=== PATIENT | female | born 1960 | race Caucasian/White ===

== ENCOUNTER → 2016-03-14 | Outpatient (CLI) | payer BC ==
--- NOTE | 2016-03-14 17:18 | MA ---
Screening Digital Mammogram With iCAD Analysis Clinical Indications: Routine screening. A sister was diagnosed with breast cancer in her 40s. Technique: Standard cephalocaudal and mediolateral oblique projections were obtained. This examinatio n was processed by the iCAD computer aided detection system. Comparison: February 2015, February 2014, January 2013, September 2011, September 2010, September 2009, August 31. Breast density: Type C; Heterogeneously dense. Findings: CAD was reviewed. No masses, suspicious calcifications or other signs of malignancy are id entified. There has been no significant change in the appearance of either breast. Impression: Negative mammogram. BI-RADS 1. Recommendation: Routine screening in one year as long as physical examination is negative in this pat ient with heterogeneously dense breasts. [facility] will send a result letter to the patient. Dense breast parenchyma diminishes mammographic sensitivity. Negative mammography should not preclude additional workup of a clinically suspicious finding. The patient's information is entered into a reminder system with a target due date for her next mammo gram.
== END ==
LOC: BMCIMAGING 15:27
DX: Z12.31 Encounter for screening mammogram for malignant neoplasm of breast (principal); Z80.3 Family history of malignant neoplasm of breast
CPT/HCPCS: G0202

== ENCOUNTER 2016-08-28 10:58 | Day surgery (SDC) | payer BC ==
[2016-08-28] MEDS ORDERED: LR 1,000 ML IV SCH (11:14)
[2016-08-28] MEDS ORDERED: LIDOCAINE 1% 2 ML INJ ID PRN (11:15)
[2016-08-28] MEDS ORDERED: CEFAZOLIN 2 GM/DEXTROSE/100 ML BAG IV ONE (11:23)
[2016-08-28] MEDS ORDERED: SILVER NITRATE APPLICATOR 1 APPL TP ONE (12:08)
[2016-08-28 12:13] VITALS: BP 126/82; PULSE 65; RESP 16; TEMP 97.7; O2SAT 96
--- NOTE | 2016-08-28 12:31 | PDANEPAE ---
ANE History of Present Illness Hysteroscope with D and C ANE Past Medical History - Cardiovascular History Hx Hypertension: No Hx Arrhythmias: No Hx Chest Pain: No Hx Coronary Artery / Peripheral Vascular Disease: No Hx CHF / Valvular Disease: No Hx Palpitations: No - Pulmonary History Hx COPD: No Hx Asthma/Reactive Airway Disease: No Hx Recent Upper Respiratory Infection: No Hx Oxygen in Use at Home: No Hx Sleep Apnea: No Sleep Apnea Screening Result - Last Documented: Negative - Neurologic History Hx Cerebrovascular Accident: No Hx Seizures: No Hx Dementia: No - Endocrine History Hx Diabetes: No Hypothyroid: No Hyperthyroid: No - Renal History Hx Renal Disorders: No - Liver History Hx Hepatic Disorders: No - Neurological & Psychiatric Hx Hx Neurological and Psychiatric Disorders: No - Cancer History Hx Cancer: No - Congenital Disorder History Hx Congenital Disorders: No - GI History GERD: no Hx Gastrointestinal Disorders: Yes Gastrointestinal History Comment: HX OF SLEEVE GASTRECTOMY - Other Health History Other Health History: WEARS GLASSES. PRONE TO ECZEMA - Chronic Pain History Chronic Pain: No - Surgical History Prior Surgeries: PRASANTH. BONE IN LEFT WRIST REPAIRED. GASTRIC SLEEVE. D&C X2 ANE Review of Systems - Exercise capacity METS (RN): 4 METS ANE Patient History - Allergies Allergies/Adverse Reactions: ciprofloxacin [From Cipro] Allergy (Unknown, Verified 08/25/16 11:24) Hives ciprofloxacin HCl [From Cipro] Allergy (Unknown, Verified 08/25/16 11:24) Hives clarithromycin [From Biaxin] Allergy (Unknown, Verified 08/25/16 11:24) Hives - Home Medications Home Medications: Herbals/Supplements -Info Only 08/25/16 [Last Taken 08/25/16] Norethindrone 08/25/16 [Last Taken 08/28/16 07:00] Warfarin Sodium 08/25/16 [Last Taken 08/25/16] Xarelto 08/25/16 [Last Taken 08/28/16 07:00] - NPO status NPO Since - Liquids (Date): 08/28/16 NPO Since - Liquids (Time): 09:00 NPO Since - Solids (Date): 08/27/16 - Anes Hx Anes Hx: post operative nausea - Smoking Hx Smoking Status: Never smoked Marijuana use: No - Alcohol Use Alcohol Use: Occasionally - Family Anes Hx Family Anes Hx: none Family Hx Anesthesia Complications: NONE ANE Labs/Vital Signs - Labs Result Diagrams: 08/28/16 12:15 - Vital Signs Blood Pressure: 126/82 Heart Rate: 65 Respiratory Rate: 16 O2 Sat (%): 96 Height: 172.72 cm Weight: 90.718 kg ANE Physical Exam - Airway Mallampati Score: Class 1 Mouth exam: normal dental/mouth exam - Pulmonary Pulmonary: no respiratory distress - Cardiovascular Cardiovascular: regular rate and rhythym, no murmur, rub, or gallop - ASA Status ASA Status: II ANE Anesthesia Plan Anesthesia Plan: GA w LMA
[2016-08-28] MEDS ORDERED: MIDAZOLAM 2 MG/2 ML VIAL IVP ONE (12:32)
[2016-08-28] MEDS ORDERED: SCOPOLAMINE HYDROBROMIDE 1.5 MG PATCH TD ONE (12:34)
[2016-08-28] MEDS ORDERED: MIDAZOLAM 2 MG/2 ML VIAL ONE (12:34)
[2016-08-28 12:38] LABS: % IMMATURE GRANULYOCYTES 0.2 % (0.0-1.1); ABSOLUTE IMMATURE GRANULOCYTES 0.01 10^3/uL (0.00-0.10); ADD DIFF? NO; ADD MORPH? NO; ADD SCAN? NO; ATYPICAL LYMPHOCYTE FLAG 20 (0-99); FRAGMENT RBC FLAG 0 (0-99); HEMATOCRIT 42.2 % (38.0-47.0); HEMOGLOBIN 13.5 g/dL (12.6-16.3); LEFT SHIFT FLG 0 (0-99); LIPEMIA HEMOLYSIS FLAG 80 (0-99); MEAN CELL HEMOGLOBIN 29.9 pg (27.9-34.1); MEAN CELL VOLUME 93.4 fL (81.5-99.8); MEAN PLATELET VOLUME 9.8 fL (8.7-11.7); PLATELET CLUMPS FLAG 0 (0-99); PLATELET COUNT 272 10^3/uL (150-400); RED BLOOD CELL COUNT 4.52 10^6/uL (4.18-5.33); RED CELL DISTRIBUTION WIDTH 14.9 % (11.5-15.2)
[2016-08-28] MEDS ORDERED: SCOPOLAMINE HYDROBROMIDE 1.5 MG PATCH TD SCH (12:45)
[2016-08-28 12:48] LABS: INR 3.85 (0.83-1.16); PROTIME(PATIENT) 38.5 SEC (12.0-15.0)
[2016-08-28 12:49] LABS: APTT 36.4 SEC (23.0-38.0)
--- NOTE | 2016-08-28 13:47 | PDHPUP ---
History & Physical Update H&P update statement: This history and physical update is based on an assessment of the patient which was completed after admission or registration (within 24 hours), but prior to the surgery/procedure. H&P update: H&P reviewed & patient examined H&P changes: Pt took her xeralto this AM, and her INR is 3.8. Discussed with Dr Oneyda Jeffery, and he indicated that xeralto can affect her INR. We will need to reschedule surgery. I reviewed her hx with him, and he indicated she needs to be off the xeralto for 3 full days prior to her scheduled D&C. Discussed this with the patient. Discussed the alternatives of a hysterosonogram for her endometrial thickening for evaluation first, then if it shows a polyp, we would want to proceed w/ hysteroscopy and removal. She desires to proceed with D&C. Will reschedule today and let her know the options.
[2016-08-31] MEDS ORDERED: PATCH REMOVAL 1 EA PATCH TD SCH (12:32)
== END 2016-08-28 13:50 | disposition home or self-care (01) ==
LOC: FSGY 10:58
PROVIDERS: ATTEND Obstetrics & Gynecology
DX: Z53.09 Procedure and treatment not carried out because of other contraindication (principal); R93.8 Abnormal findings on diagnostic imaging of other specified body structures; N93.9 Abnormal uterine and vaginal bleeding, unspecified; Z79.01 Long term (current) use of anticoagulants; Z86.711 Personal history of pulmonary embolism; Z98.84 Bariatric surgery status
CPT/HCPCS: J0690; J2250

== ENCOUNTER 2016-09-01 11:05 | Day surgery (SDC) | payer BC ==
[2016-09-01 11:51] LABS: HEMATOCRIT 43.5 % (38.0-47.0); HEMOGLOBIN 13.9 g/dL (12.6-16.3); MEAN CELL HEMOGLOBIN 30.1 pg (27.9-34.1); MEAN CELL VOLUME 94.2 fL (81.5-99.8); RED BLOOD CELL COUNT 4.62 10^6/uL (4.18-5.33)
[2016-09-01 12:02] LABS: INR 1.06 (0.83-1.16); PROTIME(PATIENT) 13.7 SEC (12.0-15.0)
[2016-09-01 12:03] LABS: APTT 23.8 SEC (23.0-38.0)
--- NOTE | 2016-09-01 12:45 | PDHPUP ---
History & Physical Update H&P update statement: This history and physical update is based on an assessment of the patient which was completed after admission or registration (within 24 hours), but prior to the surgery/procedure. H&P update: H&P reviewed & patient examined (Pt has stopped her xeralto for [address] Oneyda Jeffery recommended; INR normal. Labs look good. Waiting on UA results, if normal, will proceed with surgery.)
[2016-09-01] MEDS ORDERED: MIDAZOLAM 2 MG/2 ML VIAL IVP ONE (13:06)
--- NOTE | 2016-09-01 13:06 | PDANEPAE ---
ANE History of Present Illness 55 yo F with menorrhagia, here for hysteroscopy ANE Past Medical History - Cardiovascular History Hx Hypertension: No Hx Arrhythmias: No Hx Chest Pain: No Hx Coronary Artery / Peripheral Vascular Disease: No Hx CHF / Valvular Disease: No Hx Palpitations: No - Pulmonary History Hx COPD: No Hx Asthma/Reactive Airway Disease: No Hx Recent Upper Respiratory Infection: No Hx Oxygen in Use at Home: No Hx Sleep Apnea: No Sleep Apnea Screening Result - Last Documented: Negative - Neurologic History Hx Cerebrovascular Accident: No Hx Seizures: No Hx Dementia: No - Endocrine History Hx Diabetes: No - Renal History Hx Renal Disorders: No - Liver History Hx Hepatic Disorders: No - Neurological & Psychiatric Hx Hx Neurological and Psychiatric Disorders: No - Cancer History Hx Cancer: No - Congenital Disorder History Hx Congenital Disorders: No - GI History Hx Gastrointestinal Disorders: Yes Gastrointestinal History Comment: HX OF SLEEVE GASTRECTOMY - Other Health History Other Health History: HX-PE UNK CAUSE X1. DVT POST OP X1. WEARS GLASSES. PRONE TO ECZEMA - Chronic Pain History Chronic Pain: No - Surgical History Prior Surgeries: ACL REPAIR L W/POST OP DVT. PRASANTH. BONE IN LEFT WRIST REPAIRED. GASTRIC SLEEVE. D&C X2 ANE Review of Systems - Exercise capacity Exercise capacity: >=4 METS METS (RN): 4 METS ANE Patient History - Allergies Allergies/Adverse Reactions: ciprofloxacin [From Cipro] Allergy (Unknown, Verified 08/25/16 11:24) Hives ciprofloxacin HCl [From Cipro] Allergy (Unknown, Verified 08/25/16 11:24) Hives clarithromycin [From Biaxin] Allergy (Unknown, Verified 08/25/16 11:24) Hives - Home Medications Home medications: home medication list seen and reviewed Home Medications: Herbals/Supplements -Info Only 08/25/16 [Last Taken 08/25/16] Norethindrone 08/25/16 [Last Taken 09/01/16 07:00] Warfarin Sodium 08/31/16 [Last Taken Unknown] Xarelto 08/31/16 [Last Taken 08/28/16] - NPO status NPO Since - Liquids (Date): 09/01/16 NPO Since - Liquids (Time): 09:30 NPO Since - Solids (Date): 08/31/16 NPO Since - Solids (Time): 23:00 - Anes Hx Anes Hx: post operative nausea - Smoking Hx Smoking Status: Never smoked - Alcohol Use Alcohol Use: Rarely - Family Anes Hx Family Anes Hx: none Family Hx Anesthesia Complications: NONE ANE Labs/Vital Signs - Labs Result Diagrams: 09/01/16 11:31 - Vital Signs Blood Pressure: 107/69 Heart Rate: 58 Respiratory Rate: 16 O2 Sat (%): 96 Height: 172.72 cm Weight: 90.718 kg ANE Physical Exam - Airway Neck exam: FROM Mallampati Score: Class 2 Mouth exam: normal dental/mouth exam - Pulmonary Pulmonary: no respiratory distress, clear to auscultation - Cardiovascular Cardiovascular: regular rate and rhythym, no murmur, rub, or gallop - ASA Status ASA Status: II ANE Anesthesia Plan Anesthesia Plan: GA w LMA
[2016-09-01] MEDS ORDERED: MIDAZOLAM 2 MG/2 ML VIAL ONE (13:12)
[2016-09-01 13:13] LABS: COLOR YELLOW; LEUKOCYTE ESTERASE,URINE NEGATIVE (NEGATIVE); NITRITE,URINE NEGATIVE (NEGATIVE)
[2016-09-01 13:24] LABS: MUCUS TRACE /lpf (NONE-1+); RBC,URINE 50-182 /hpf (0-3)
[2016-09-01 13:25] LABS: BACTERIA NONE SEEN /hpf (NONE SEEN); YEAST NONE SEEN /hpf (NONE SEEN)
[2016-09-01] MEDS ORDERED: HYDROCODONE/APAP 5/325 TAB PO PRN (13:25)
[2016-09-01] MEDS ORDERED: ONDANSETRON DISINTEGRATING 4 MG TAB PO PRN (13:25)
[2016-09-01] MEDS ORDERED: SILVER NITRATE APPLICATOR 1 APPL TP ONE (13:26)
[2016-09-01] MEDS ORDERED: fentaNYL 100 MCG/2 ML INJ ONE (13:27)
[2016-09-01] MEDS ORDERED: PROPOFOL 200 MG/20 ML VIAL ONE (13:27)
[2016-09-01] MEDS ORDERED: LIDOCAINE 2% 100 MG/5 ML SYR ONE (13:29)
[2016-09-01] MEDS ORDERED: DEXAMETHASONE 4 MG/ML VIAL ONE (13:53)
[2016-09-01] MEDS ORDERED: ONDANSETRON 4 MG/2 ML VIAL ONE (13:53)
[2016-09-01] MEDS ORDERED: OXYCODONE/APAP 5/325 TAB PO PRN (14:05)
[2016-09-01] MEDS ORDERED: ACETAMINOPHEN 500 MG TAB PO PRN (14:05)
[2016-09-01] MEDS ORDERED: PROMETHAZINE HCL 25 MG/ML INJ IVP PRN (14:05)
[2016-09-01] MEDS ORDERED: ONDANSETRON 4 MG/2 ML VIAL IVP PRN (14:05)
[2016-09-01] MEDS ORDERED: NALOXONE HCL 0.4 MG/ML INJ IVP PRN (14:05)
[2016-09-01] MEDS ORDERED: fentaNYL 100 MCG/2 ML INJ IVP PRN (14:05)
--- NOTE | 2016-09-01 14:33 | POSTANESTH ---
Post Anesthetic Evaluation Cardiovascular Status: Normal, Stable, Similar to Pre-Op Cond Respiratory Status: Normal, Stable, Similar to Pre-op Cond. Level of Consciousness/Mental Status: Can Participate in Eval, Alert and Oriented Pain Control: Adequate, Prn Tx Ordered Nausea/Vomiting Control: Adequate, Prn Tx Ordered Complications Possibly Related to Anesthesia: None Noted
[2016-09-01 14:46] VITALS: TEMP 97.5
[2016-09-01 15:52] VITALS: BP 104/68; PULSE 63; RESP 16; O2SAT 98
--- NOTE | 2016-09-02 22:00 | GOP ---
[f rep st] OPERATIVE REPORT DATE OF OPERATION: 09/01/2016 SURGEON: Caitlyn Peters MD DRAWING INSTRUCTOR: None. ANESTHESIA: General. PREOPERATIVE DIAGNOSIS: 1. Postmenopausal bleeding. 2. Endometrial thickening. POSTOPERATIVE DIAGNOSIS: 1. Postmenopausal bleeding. 2. Endometrial thickening. PROCEDURE PERFORMED: FINDINGS: 1. Exam under anesthesia revealed an anteverted uterus and no adnexal masses. 1. Intraoperative findings revealed a thickened irregular endometrial lining with a small polyp at the right ostia as well as possible other irregular growth along the lower uterine segment. 2. SPECIMENS: Endometrial curettings. ESTIMATED BLOOD LOSS: Minimal. INDICATIONS: Patient is a 55-year-old, perimenopausal female, with persistent abnormal bleeding williams pite progesterone with a thickened endometrial stripe suggestive of an underlying disease process or mass. She has a history significant for a prior deep venous thrombosis as well as a pulmonary embo lism and has been on anticoagulation with Coumadin. She was transitioned to Xarelto which she stopp ed 4 days prior to surgery as per Hematology recommendations. She has agreed to proceed with furthe r evaluation with hysteroscopy to rule out any mass that needs to be removed as well as better surgi jacqueline sampling the endometrial lining. DESCRIPTION OF PROCEDURE: The patient was taken to the operating room, where general anesthesia was found to be adequate. Patient was prepared and draped in normal sterile fashion in dorsal lithotom y position. A weighted speculum was placed in the patient's vagina. A Lux retractor was used to v isualize the cervix clearly. A single-toothed tenaculum was placed on the anterior lip of the cervi x and the cervix was gently dilated up to 6 mm with Hegar dilators with no complications. In fact, the cervix was loosely open and clinically seemed even more dilated without need for mechanical dila tion. A zero degree 5 mm hysteroscope was placed into the cervix and advanced into the uterine cavity with no complications. The cervical canal was clearly dilated larger than 5 mm because a significant am ount of fluid was coming out of the uterine cavity through the cervical os. The cervix was then lois sed with an additional tenaculum and a Christopher Stone forceps to provide a tight seal around the hyst eroscope. During this time, a lot of fluid was lost which I think explains the larger fluid deficit during the surgery. The lining was then visualized clearly and findings noted as described above. The lining was then s ampled circumferentially and a visual curettage was performed with the 2.9 morcellator under direct visualization. The lining then appeared to be thinned out and homogeneous. The hysteroscope was th en removed. The tenacula were removed and hemostasis was obtained at the tenacula sites. All sponge and lap counts were correct x2. Patient was woken from anesthesia without complications and taken to the PACU in stable and good condition. PROCEDURES PERFORMED: 1. Dilation and curettage. 2. Hysteroscopy. COMPLICATIONS: None. DRAINS: None. IV FLUIDS: 400 cc. URINE OUTPUT: None, as she voided immediately prior to the procedure. FLUID DEFICIT: 500 cc. /[id number]/MODL
== END 2016-09-01 16:00 | disposition home or self-care (01) ==
LOC: FSGY 11:05
PROVIDERS: ATTEND Obstetrics & Gynecology
PROC: 0UDB8ZX Extraction of Endometrium, Via Natural or Artificial Opening Endoscopic, Diagnostic (ICD-10-PCS; principal; 2016-09-01 12:30)
DX: N95.0 Postmenopausal bleeding (principal); R93.8 Abnormal findings on diagnostic imaging of other specified body structures; Z86.718 Personal history of other venous thrombosis and embolism; Z86.711 Personal history of pulmonary embolism; Z79.01 Long term (current) use of anticoagulants
CPT/HCPCS: 58558; C1782; J1100; J2001; J2250; J2405; J2704; J3010

== ENCOUNTER 2016-12-11 16:10 | Emergency (ER) | payer BC ==
[2016-12-11 16:26] VITALS: O2SAT 97
--- NOTE | 2016-12-11 16:35 | EDPHY ---
H & P Stated Complaint: HEAVY VAGINAL BLEEDING Time Seen by Provider: 12/11/16 16:31 HPI/ROS: CHIEF COMPLAINT: Vaginal bleeding, on Xarelto HISTORY OF PRESENT ILLNESS: 56-year-old female with history of postmenopausal bleeding, endometrial thickening, dilatation and curettage in August [address] Caitlyn Peters, history of recurrent pulmonary emboli on daily Xarelto, arrives via private vehicle complaining of vaginal bleeding 6 days. She spoke with her OBGYN doctor bladder recommended stopping and starting Norendthindrone however bleeding continues, she is soaking a tampon and a pad every 30-45 minutes. She was approximately 45 minutes away in [facility]. She is complaining of suprapubic cramping. No back or flank pain. No syncope or near syncope. No dizziness. PCP: Gunjan Dumont REVIEW OF SYSTEMS: A ten point review of systems was performed and is negative with the exception of the items mentioned in the HPI PAST MEDICAL & SURGICAL HISTORY: Recurrent pulmonary emboli. Postmenopausal bleeding and endometrial thickening. Daily Xarelto SOCIAL HISTORY: Nonsmoker PHYSICAL EXAM (Prior to examination, patient consented to physical exam, hands were washed and my usual and customary physical exam procedures followed) 1) GENERAL: Well-developed, well-nourished, alert and oriented. Appears to be in no acute distress. 2) HEAD: Normocephalic, atraumatic 3) HEENT: Pupils equal, round, reactive to light bilaterally. Sclera anicteric. 4) NECK: Full range of motion, no meningeal signs. 5) LUNGS: Clear auscultation bilaterally, no wheezes, no rhonchi, no retractions. 6) HEART: Regular rate and rhythm, no murmur, no heave, no gallop. 7) ABDOMEN: No guarding, no rebound, no focal tenderness, negative McBurney's, negative Hinton's, negative Rovsing's, negative peritoneal sign, 8) MUSCULOSKELETAL: Moving all extremities, no focal areas of tenderness, no obvious trauma. No peripheral edema or discoloration. 9) BACK: no visual or palpable abnormality. 10) SKIN: No rash, no petechiae. 11) PELVIC (with female nurse Beba at bedside): Normal female external genitalia, no lesions visualized. Speculum examination reveals minimal amount of old blood in the vaginal vault. DIFFERENTIAL DIAGNOSIS: [ in no particular order including but not limited to dysfunctional uterine bleeding, hypokalemia, anemia - Personal History Current Tetanus/Diphtheria Vaccine: No Current Tetanus Diphtheria and Acellular Pertussis (TDAP): No Tetanus Vaccine Date: 2004 - Medical/Surgical History Hx Asthma: No Hx Chronic Respiratory Disease: No Hx Diabetes: No Hx Cardiac Disease: No Hx Renal Disease: No Hx Cirrhosis: No Hx Alcoholism: No Hx HIV/AIDS: No Hx Splenectomy or Spleen Trauma: No Other PMH: PES. DVTS ON ANTICOAGS - Social History Smoking Status: Never smoked Constitutional: Initial Vital Signs Temperature (C) 36.7 C 12/11/16 16:22 Heart Rate 98 12/11/16 16:22 Respiratory Rate 18 12/11/16 16:22 Blood Pressure 136/86 H 12/11/16 16:22 O2 Sat (%) 97 12/11/16 16:22 O2 Delivery Mode Room Air Allergies/Adverse Reactions: ciprofloxacin [From Cipro] Allergy (Unknown, Verified 12/11/16 16:26) Hives ciprofloxacin HCl [From Cipro] Allergy (Unknown, Verified 12/11/16 16:26) Hives clarithromycin [From Biaxin] Allergy (Unknown, Verified 12/11/16 16:26) Hives Home Medications: Medication Instructions Recorded Herbals/Supplements -Info Only 08/25/16 Norethindrone 08/25/16 Xarelto 08/31/16 Medical Decision Making - Diagnostics Imaging Results: Imaging Impressions Pelvic/Renal Ultrasound 12/11/16 16:48 Impression: 1. Abnormal thickened (1.2 cm) endometrial lining contains minimal mobile blood products. Recommend WEIGHER AND MIXER follow up. 2. Normal right ovary. No adnexal mass or free fluid. Findings discussed with Emergency Department physician equal opportunity assistant, Wilman Mcguire PA-C on December 11, 2016 at 1752 hours. ED Course/Re-evaluation: 6:00 p.m.: Patient informs me that she has on lifetime anticoagulant therapy secondary to recurrent pulmonary emboli. Stopping the patient's Xarelto not an option at this time. Patient has been re-evaluated with serial examinations, she is hemodynamically stable. Phone consultation with patient's OBGYN Dr. Caitlyn Peters, recommend the patient keep her appointment in the office scheduled for 3 days from now. In the meantime if the patient develops new or worsening symptoms to return to the emergency department. Discussed this with the patient she feels comfortable with this plan.Care of patient under supervision of primary supervising physician Dr Candelario with whom I discussed the case . - Data Points Laboratory Results: Laboratory Results 12/11/16 16:51 12/11/16 16:51 12/11/16 12/11/16 12/11/16 17:25 16:51 16:51 WBC RBC Hgb Hct MCV MCH MCHC RDW Plt Count MPV Neut % (Auto) Lymph % (Auto) Brooke % (Auto) Eos % (Auto) Baso % (Auto) Nucleat RBC Rel Count Absolute Neuts (auto) Absolute Lymphs (auto) Absolute Monos (auto) Absolute Eos (auto) Absolute Basos (auto) Absolute Nucleated RBC Immature Gran % Immature Gran # PT 21.1 SEC H SEC (12.0-15.0) INR 1.81 H (0.83-1.16) APTT 28.6 SEC SEC (23.0-38.0) Sodium 138 mEq/L mEq/L (134-144) Potassium 4.3 mEq/L mEq/L (3.5-5.2) Chloride 106 mEq/L mEq/L (97-110) Carbon Dioxide 18 mEq/l L mEq/l (22-31) Anion Gap 14 mEq/L mEq/L (8-16) BUN 18 mg/dL mg/dL (7-23) Creatinine 1.1 mg/dL H mg/dL (0.6-1.0) Estimated GFR 52 Glucose 99 mg/dL mg/dL (70-100) Calcium 9.1 mg/dL mg/dL (8.5-10.4) Urine Color YELLOW Urine Appearance HAZY Urine pH 5.0 (5.0-7.5) Ur Specific [place] 1.029 (1.002-1.030) Urine Protein 1+ H (NEGATIVE) Urine Ketones 1+ H (NEGATIVE) Urine Blood 3+ H (NEGATIVE) Urine Nitrate NEGATIVE (NEGATIVE) Urine Bilirubin NEGATIVE (NEGATIVE) Urine Urobilinogen NEGATIVE EU EU (0.2-1.0) Ur Leukocyte Esterase NEGATIVE (NEGATIVE) Urine RBC 50-182 /hpf H /hpf (0-3) Urine WBC 3-5 /hpf H /hpf (0-3) Ur Epithelial Cells TRACE /lpf /lpf (NONE-1+) Urine Mucus 1+ /lpf /lpf (NONE-1+) Urine Glucose NEGATIVE (NEGATIVE) 12/11/16 16:51 WBC 6.63 10^3/uL 10^3/uL (3.80-9.50) RBC 4.06 10^6/uL L 10^6/uL (4.18-5.33) Hgb 12.0 g/dL L g/dL (12.6-16.3) Hct 36.5 % L % (38.0-47.0) MCV 89.9 fL fL (81.5-99.8) MCH 29.6 pg pg (27.9-34.1) MCHC 32.9 g/dL g/dL (32.4-36.7) RDW 14.7 % % (11.5-15.2) Plt Count 339 10^3/uL 10^3/uL (150-400) MPV 9.1 fL fL (8.7-11.7) Neut % (Auto) 58.9 % % (39.3-74.2) Lymph % (Auto) 32.6 % % (15.0-45.0) Brooke % (Auto) 6.5 % % (4.5-13.0) Eos % (Auto) 0.9 % % (0.6-7.6) Baso % (Auto) 0.8 % % (0.3-1.7) Nucleat RBC Rel Count 0.0 % % (0.0-0.2) Absolute Neuts (auto) 3.91 10^3/uL 10^3/uL (1.70-6.50) Absolute Lymphs (auto) 2.16 10^3/uL 10^3/uL (1.00-3.00) Absolute Monos (auto) 0.43 10^3/uL 10^3/uL (0.30-0.80) Absolute Eos (auto) 0.06 10^3/uL 10^3/uL (0.03-0.40) Absolute Basos (auto) 0.05 10^3/uL 10^3/uL (0.02-0.10) Absolute Nucleated RBC 0.00 10^3/uL 10^3/uL (0-0.01) Immature Gran % 0.3 % % (0.0-1.1) Immature Gran # 0.02 10^3/uL 10^3/uL (0.00-0.10) PT INR APTT Sodium Potassium Chloride Carbon Dioxide Anion Gap BUN Creatinine Estimated GFR Glucose Calcium Urine Color Urine Appearance Urine pH Ur Specific [place] Urine Protein Urine Ketones Urine Blood Urine Nitrate Urine Bilirubin Urine Urobilinogen Ur Leukocyte Esterase Urine RBC Urine WBC Ur Epithelial Cells Urine Mucus Urine Glucose Departure - Departure Disposition: Home, Routine, Self-Care Clinical Impression: Dysfunctional uterine bleeding Condition: Good Instructions: Dysfunctional Uterine Bleeding (ED) Additional Instructions: Return to the closest emergency department if you develop new or worsening symptoms, if you develop dizziness, feeling faint, or any other symptoms that concern you Referrals: Caitlyn Peters MD [Medical Doctor] - 12/14/16 (Keep your appointment with Dr. Peters this )
[2016-12-11 17:04] LABS: PLATELET COUNT 339 10^3/uL (150-400)
[2016-12-11 17:15] LABS: INR 1.81 (0.83-1.16); PROTIME(PATIENT) 21.1 SEC (12.0-15.0)
[2016-12-11 18:22] VITALS: BP 112/65; PULSE 79; RESP 16; TEMP 99
== END 2016-12-11 18:22 | disposition home or self-care (01) ==
DX: N93.8 Other specified abnormal uterine and vaginal bleeding (principal)

== ENCOUNTER 2016-12-13 10:05 | Inpatient (IN) | payer BC ==
[~2016-12-13 10:05] MED LIST: NS 1,000 ML IV ONE
--- NOTE | 2016-12-13 10:21 | EDPHY ---
General Narrative: CHIEF COMPLAINT: Vaginal bleeding, syncope HISTORY OF PRESENT ILLNESS: Patient complains of increasing vaginal bleeding, lightheadedness, loss of consciousness. She has been bleeding for 6 days. When she was here 2 days ago the bleeding was 1 pad 1 tampon every hour. Since then it has increased to 1 pad and 1 tampon every 15-30 minutes. She has felt lightheaded. She has felt dizzy. She had a syncopal episode this morning when she fell and struck her head on a door way. No chest pain. No abdominal pain. Some nausea. No bleeding from any other site. She does take Xarelto due to recurrent PEs in the past. No other associated complaints or modifying factors. She is scheduled to see her established human resources advisor tomorrow morning at 9:00 a.m.. REVIEW OF SYSTEMS: Ten systems reviewed and are negative unless otherwise noted in the HPI SPECIALISTS: Dr. osorio PAST MEDICAL HISTORY: Postmenopausal PAST SURGICAL HISTORY: Gastric sleeve, knee surgery SOCIAL HISTORY: Currently on a plane. 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 Lives with her up in the [facility] FAMILY HISTORY: Noncontributory EXAMINATION General Appearance: Alert, no distress Head: normocephalic, 2.5 cm posterior scalp laceration. No active bleeding. No depression. No Parker sign. No raccoon eyes. Eyes: Pupils equal and round, no conjunctival pallor or injection ENT, Mouth: Mucous membranes moist Neck: Normal inspection, supple, non-tender Respiratory: Lungs are clear to auscultation. No wheezing, rhonchi or crackles Cardiovascular: Regular rate and rhythm. No murmur Gastrointestinal: Abdomen is soft and nontender no tympany. No rigidity. No guarding. No CVA tenderness. Back: non-tender, no bony abnormalities Neurological: A&O, nonfocal, normal gait Skin: Warm and dry, no rash Extremities: Nontender, no pedal edema Psychiatric: Mood and affect normal DIFFERENTIAL DIAGNOSES: Including but not limited to dysfunctional uterine bleeding, Xarelto coagulopathy, intracranial hemorrhage, scalp laceration, contusion, concussion, syncope, anemia MDM: 10:25 a.m. Increasing vaginal bleeding in a patient who is anticoagulated with Xarelto due to recurrent DVT and PEs. She is bleeding 1 a super pad and tampon every 30 minutes at this time. She is awake and alert. She reports near-syncope. No chest pain at this time. She does appear to be pale her vital signs are stable. I have reviewed the patient's visit from 2 days ago. Laboratory studies are pending at this time. Plan for consultation with Dr. Peters. 10:30 a.m. Notified by nursing staff on examination that they found a laceration on the posterior scalp. Re-examined the patient. She fell during syncopal episode today and struck her head on a doorjamb. Her was present for this. She has no headache but she does have soft tissue neck pain. There is a 2.5 cm scalp laceration that will require suture repair. I have ordered CT scans of the head and cervical spine given her use of Xarelto. There is still attempting to place an IV at this time. 11:10 a.m. CBC has returned with a hemoglobin 7.9. I discussed with Dr. Candelario and we will consult gynecology. I have recheck patient this time. Her heart rate is 80. Her pressure is 96/70. She is awake alert and mentating appropriately. 11:20 a.m. I have discussed the case with the patient's human resources advisor Dr. Peters. She says that she would be happy to take the patient to transfer to her facility. I informed that the patient like to actually reestablished with an OB physician here she would like to keep her care at [facility]. Dr. Peters informed me that she understands and would be happy to provide care should the patient change her mind. 11:35 a.m. Case discussed with the on-call OB physician Dr. Meade. He has requested 2 units of packed red blood cells. He will come evaluate the patient in the emergency department. 12:15 p.m. Case discussed with Dr. Meade. He will admit the patient to his service. He is requesting hospital for consultation due to difficulty with anticoagulation. I will discuss with the hospitalist. She is admitted in stable condition to his service. 12:20 p.m. I discussed the case with the hospitalist Hali Chavez np. Hospitalist service will provide consultation for the patient. I provided the cell phone number of Dr. Meade for the contact him directly. I have re-evaluated the patient at this time. She is awake and alert. She is conversing appropriately. She is not hypotensive. She understands the plan and has agreed to proceed. 1:00 p.m. Patient re-evaluated. She still is in the emergency department at this time. She is awaiting transfer to her room. She is awake alert. No acute distress. Vital signs remained stable. - Diagnostics Imaging Results: Imaging Impressions Cervical Spine CT 12/13/16 10:31 Impression: 1. No acute intracranial abnormality seen. 2. Incidental pineal cyst as detailed above. 3. No acute abnormality CT cervical spine. 4. Mild to moderate disk bulge at C4-C5 with moderate spinal stenosis. If symptoms worsen, additional imaging may be necessary. Findings discussed with Lyle Miami PAC at 11:32 hour, 12/13/2016. Head CT 12/13/16 10:31 Impression: 1. No acute intracranial abnormality seen. 2. Incidental pineal cyst as detailed above. 3. No acute abnormality CT cervical spine. 4. Mild to moderate disk bulge at C4-C5 with moderate spinal stenosis. If symptoms worsen, additional imaging may be necessary. Findings discussed with Lyle Miami PAC at 11:32 hour, 12/13/2016. - History Smoking Status: Never smoked - Objective Vital Signs: Initial Vital Signs Temperature (C) 98.6 F 12/13/16 10:07 Heart Rate 85 12/13/16 10:07 Respiratory Rate 17 12/13/16 10:07 Blood Pressure 120/75 12/13/16 10:07 O2 Sat (%) 100 12/13/16 10:07 O2 Delivery Mode Room Air Allergies/Adverse Reactions: ciprofloxacin [From Cipro] Allergy (Unknown, Verified 12/13/16 10:06) Hives ciprofloxacin HCl [From Cipro] Allergy (Unknown, Verified 12/13/16 10:06) Hives clarithromycin [From Biaxin] Allergy (Unknown, Verified 12/13/16 10:06) Hives Home Medications: Medication Instructions Recorded Herbals/Supplements -Info Only 1 ea PO DAILY 08/25/16 Norethindrone Acetate 5 mg PO TID #0 08/25/16 Rivaroxaban [Xarelto 10mg (*)] 20 mg PO DAILY 08/31/16 Acetaminophen [Tylenol 325mg (*)] 325 mg PO DAILY PRN 12/13/16 Cholecalciferol Vit D3 [Vitamin D3 3,000 units PO DAILY 12/13/16 (*)] Ferrous Sulfate [Ferrous Sulf 325 325 mg PO DAILY 12/13/16 MG (*)] Multivitamins [Multivitamin (*)] 1 each PO DAILY 12/13/16 Laboratory Results: Laboratory Results 12/13/16 10:34 12/13/16 10:34 12/13/16 12/13/16 12/13/16 10:34 10:34 10:34 WBC RBC Hgb Hct MCV MCH MCHC RDW Plt Count MPV Neut % (Auto) Lymph % (Auto) [place] % (Auto) Eos % (Auto) Baso % (Auto) Nucleat RBC Rel Count Absolute Neuts (auto) Absolute Lymphs (auto) Absolute Monos (auto) Absolute Eos (auto) Absolute Basos (auto) Absolute Nucleated RBC Immature Gran % Immature Gran # PT 29.3 SEC H D SEC (12.0-15.0) INR 2.74 H (0.83-1.16) APTT 28.0 SEC SEC (23.0-38.0) Sodium 140 mEq/L mEq/L (134-144) Potassium 3.5 mEq/L mEq/L (3.5-5.2) Chloride 105 mEq/L mEq/L (97-110) Carbon Dioxide 20 mEq/l L mEq/l (22-31) Anion Gap 15 mEq/L mEq/L (8-16) BUN 17 mg/dL mg/dL (7-23) Creatinine 1.1 mg/dL H mg/dL (0.6-1.0) Estimated GFR 52 Glucose 125 mg/dL H mg/dL (70-100) Calcium 8.4 mg/dL L mg/dL (8.5-10.4) Total Bilirubin 0.2 mg/dL mg/dL (0.1-1.4) Conjugated Bilirubin 0.0 mg/dL mg/dL (0.0-0.5) Unconjugated Bilirubin 0.2 mg/dL mg/dL (0.0-1.1) AST 35 IU/L IU/L (14-46) ALT 48 IU/L IU/L (9-52) Alkaline Phosphatase 42 IU/L IU/L (38-126) Troponin I < 0.012 ng/mL ng/mL (0.000-0.034) Total Protein 6.0 g/dL L g/dL (6.3-8.2) Albumin 3.0 g/dL L g/dL (3.5-5.0) Lipase 157 IU/L IU/L (23-300) Patient ABO/Rh A POSITIVE Antibody Screen NEGATIVE Crossmatch IS Only See Detail 12/13/16 10:34 WBC 8.62 10^3/uL 10^3/uL (3.80-9.50) RBC 2.73 10^6/uL L 10^6/uL (4.18-5.33) Hgb 7.9 g/dL L g/dL (12.6-16.3) Hct 25.0 % L D % (38.0-47.0) MCV 91.6 fL fL (81.5-99.8) MCH 28.9 pg pg (27.9-34.1) MCHC 31.6 g/dL L g/dL (32.4-36.7) RDW 14.9 % % (11.5-15.2) Plt Count 320 10^3/uL 10^3/uL (150-400) MPV 9.6 fL fL (8.7-11.7) Neut % (Auto) 78.9 % H % (39.3-74.2) Lymph % (Auto) 16.7 % % (15.0-45.0) Weld % (Auto) 3.6 % L % (4.5-13.0) Eos % (Auto) 0.1 % L % (0.6-7.6) Baso % (Auto) 0.2 % L % (0.3-1.7) Nucleat RBC Rel Count 0.0 % % (0.0-0.2) Absolute Neuts (auto) 6.80 10^3/uL H 10^3/uL (1.70-6.50) Absolute Lymphs (auto) 1.44 10^3/uL 10^3/uL (1.00-3.00) Absolute Monos (auto) 0.31 10^3/uL 10^3/uL (0.30-0.80) Absolute Eos (auto) 0.01 10^3/uL L 10^3/uL (0.03-0.40) Absolute Basos (auto) 0.02 10^3/uL 10^3/uL (0.02-0.10) Absolute Nucleated RBC 0.00 10^3/uL 10^3/uL (0-0.01) Immature Gran % 0.5 % % (0.0-1.1) Immature Gran # 0.04 10^3/uL 10^3/uL (0.00-0.10) PT INR APTT Sodium Potassium Chloride Carbon Dioxide Anion Gap BUN Creatinine Estimated GFR Glucose Calcium Total Bilirubin Conjugated Bilirubin Unconjugated Bilirubin AST ALT Alkaline Phosphatase Troponin I Total Protein Albumin Lipase Patient ABO/Rh Antibody Screen Crossmatch IS Only Medications Given: Dextrose/Lactated Ringer's (D5w Lr) 1,000 mls @ 125 mls/hr IV CONT LLOYD Stop: 06/11/17 12:29 Last Admin: 12/13/16 15:28 Dose: 1,000 mls Medroxyprogesterone Acetate (Provera) 20 mg PO BID LLOYD Stop: 06/11/17 12:44 Last Admin: 12/13/16 14:26 Dose: 20 mg Discontinued Medications Sodium Chloride (Ns) 1,000 mls @ 0 mls/hr IV ONCE ONE PRN Reason: Wide Open Stop: 12/13/16 10:01 Last Admin: 12/13/16 10:25 Dose: 1,000 mls Sodium Chloride (Ns) 1,000 mls @ 0 mls/hr IV ONCE ONE PRN Reason: Wide Open Stop: 12/13/16 10:01 Last Admin: 12/13/16 14:58 Dose: Not Given Departure - Departure Disposition: [facility] Acute Clinical Impression: DUB (dysfunctional uterine bleeding), On rivaroxaban therapy, Acute blood loss anemia Condition: Good
[2016-12-13 10:48] LABS: PLATELET COUNT 320 10^3/uL (150-400)
[2016-12-13 10:59] LABS: INR 2.74 (0.83-1.16); PROTIME(PATIENT) 29.3 SEC (12.0-15.0)
[2016-12-13] MEDS ORDERED: medroxyPROGESTERone 10 MG TAB PO SCH ×2 (12:45)
[2016-12-13] MEDS: D5W LR 1,000 ML IV SCH ×2 (15:28)
[2016-12-13] MEDS: TRANEXAMIC ACID 650 MG TAB PO SCH ×4 (15:54→22:56)
--- NOTE | 2016-12-13 16:14 | PDGENHP ---
History and Physical - Chief Complaint Acute menorrhagia - History of Present Illness Primary diffusion furnace operator: Dr. Caitlyn Peters Primary service: Obstetrics: Dr. Meade Reason for consultation: Systemic anticoagulation HPI: 56-year-old female presenting with acute menorrhagia characterized as profuse vaginal bleeding with associated lightheadedness and loss of consciousness, with onset of symptoms 7 days ago and duration persistent worsening thereafter. The patient reports that approximately 1 week ago she began increasing her frequency of temp onset approximately every 1 hour, and has recently escalated to every 15 minutes. She presented to the emergency department on 12/11/2016, and was recommended that she follow up with her primary obstetric provider. Since that time, the bleeding has escalated, and on the day of presentation, the patient was attempting to seek medical attention when she became lightheaded, lost consciousness, struck her head on the car door. The patient has otherwise been adherent to all of her home medications including her progestin supplement and her Xarelto. Her last oral intake of medications was on the morning of presentation. History Information - Allergies/Home Medication List Allergies/Adverse Reactions: ciprofloxacin [From Cipro] Allergy (Unknown, Verified 12/13/16 10:06) Hives ciprofloxacin HCl [From Cipro] Allergy (Unknown, Verified 12/13/16 10:06) Hives clarithromycin [From Biaxin] Allergy (Unknown, Verified 12/13/16 10:06) Hives Home Medications: Herbals/Supplements -Info Only 1 ea PO DAILY 08/25/16 [Last Taken 08/25/16] Norethindrone Acetate 5 mg PO TID #0 08/25/16 [Last Taken 12/13/16] Rivaroxaban [Xarelto 10mg (*)] 20 mg PO DAILY 08/31/16 [Last Taken 12/13/16] Acetaminophen [Tylenol 325mg (*)] 325 mg PO DAILY PRN 12/13/16 [Last Taken Unknown] Cholecalciferol Vit D3 [Vitamin D3 (*)] 3,000 units PO DAILY 12/13/16 [Last Taken Unknown] Ferrous Sulfate [Ferrous Sulf 325 MG (*)] 325 mg PO DAILY 12/13/16 [Last Taken Unknown] Multivitamins [Multivitamin (*)] 1 each PO DAILY 12/13/16 [Last Taken Unknown] I have personally reviewed and updated: family history, medical history, social history, surgical history - Past Medical History DVT (Provoked in 2007, received systemic anticoagulation with Coumadin for 3 months), pulmonary embolism (Unprovoked, 2012, initiated on Lovenox and Coumadin , negative hypercoagulable workup, seen in the outpatient setting by Dr. Liam Jeffery, was adjusted to Xarelto during the summer of 2016) Additional medical history: Postmenopausal menorrhagia, with D and C in August 2016 as well as initiation of progestin therapy - Surgical History Additional surgical history: Gastric sleeve. D&C August 2016. Cholecystectomy. ACL - Family History Additional family history: Family history of blood dyscrasias or venous thromboembolism - Social History Smoking Status: Never smoked Alcohol Use: None Drug Use: None Additional social history: Normally independent in her ADLs Review of Systems Review of Systems: ROS: 10pt was reviewed & negative except for what was stated in HPI & below Neurological: Reports: other (Lightheadedness) Hematologic/Lymphatic: Reports: other (Vaginal bleeding) Physical Exam Physical Exam: Temp Pulse Resp BP Pulse Ox 36.7 C 86 20 104/67 98 12/13/16 15:20 12/13/16 15:20 12/13/16 15:20 12/13/16 15:20 12/13/16 15:20 Constitutional: no apparent distress, appears nourished, not in pain, other ( Pale appearing) Eyes: PERRL, anicteric sclera, EOMI Ears, Nose, Mouth, Throat: moist mucous membranes, hearing normal, ears appear normal, no oral mucosal ulcers Cardiovascular: regular rate and rhythym, no murmur, rub, or gallop, No edema Respiratory: no respiratory distress, no rales or rhonchi, clear to auscultation Gastrointestinal: normoactive bowel sounds, soft, non-tender abdomen, no palpable masses Genitourinary: no bladder fullness, no bladder tenderness Skin: warm, no rashes or abrasions, no fluctuance, no induration, other ( Somewhat pale), No mottled Neurologic: AAOx3, sensation intact bilaterally, No weakness Psychiatric: interacting appropriately, not anxious, not encephalopathic, thought process linear Lab Data & Imaging Review 12/13/16 10:34 12/13/16 10:34 WBC 8.62 10^3/uL (3.80-9.50) 12/13/16 10:34 RBC 2.73 10^6/uL (4.18-5.33) L 12/13/16 10:34 Hgb 7.9 g/dL (12.6-16.3) L 12/13/16 10:34 Hct 25.0 % (38.0-47.0) L D 12/13/16 10:34 MCV 91.6 fL (81.5-99.8) 12/13/16 10:34 MCH 28.9 pg (27.9-34.1) 12/13/16 10:34 MCHC 31.6 g/dL (32.4-36.7) L 12/13/16 10:34 RDW 14.9 % (11.5-15.2) 12/13/16 10:34 Plt Count 320 10^3/uL (150-400) 12/13/16 10:34 MPV 9.6 fL (8.7-11.7) 12/13/16 10:34 Neut % (Auto) 78.9 % (39.3-74.2) H 12/13/16 10:34 Lymph % (Auto) 16.7 % (15.0-45.0) 12/13/16 10:34 [place] % (Auto) 3.6 % (4.5-13.0) L 12/13/16 10:34 Eos % (Auto) 0.1 % (0.6-7.6) L 12/13/16 10:34 Baso % (Auto) 0.2 % (0.3-1.7) L 12/13/16 10:34 Nucleat RBC Rel Count 0.0 % (0.0-0.2) 12/13/16 10:34 Absolute Neuts (auto) 6.80 10^3/uL (1.70-6.50) H 12/13/16 10:34 Absolute Lymphs (auto) 1.44 10^3/uL (1.00-3.00) 12/13/16 10:34 Absolute Monos (auto) 0.31 10^3/uL (0.30-0.80) 12/13/16 10:34 Absolute Eos (auto) 0.01 10^3/uL (0.03-0.40) L 12/13/16 10:34 Absolute Basos (auto) 0.02 10^3/uL (0.02-0.10) 12/13/16 10:34 Absolute Nucleated RBC 0.00 10^3/uL (0-0.01) 12/13/16 10:34 Immature Gran % 0.5 % (0.0-1.1) 12/13/16 10:34 Immature Gran # 0.04 10^3/uL (0.00-0.10) 12/13/16 10:34 PT 29.3 SEC (12.0-15.0) H D 12/13/16 10:34 INR 2.74 (0.83-1.16) H 12/13/16 10:34 APTT 28.0 SEC (23.0-38.0) 12/13/16 10:34 Sodium 140 mEq/L (134-144) 12/13/16 10:34 Potassium 3.5 mEq/L (3.5-5.2) 12/13/16 10:34 Chloride 105 mEq/L (97-110) 12/13/16 10:34 Carbon Dioxide 20 mEq/l (22-31) L 12/13/16 10:34 Anion Gap 15 mEq/L (8-16) 12/13/16 10:34 BUN 17 mg/dL (7-23) 12/13/16 10:34 Creatinine 1.1 mg/dL (0.6-1.0) H 12/13/16 10:34 Estimated GFR 52 12/13/16 10:34 Glucose 125 mg/dL (70-100) H 12/13/16 10:34 Calcium 8.4 mg/dL (8.5-10.4) L 12/13/16 10:34 Total Bilirubin 0.2 mg/dL (0.1-1.4) 12/13/16 10:34 Conjugated Bilirubin 0.0 mg/dL (0.0-0.5) 12/13/16 10:34 Unconjugated Bilirubin 0.2 mg/dL (0.0-1.1) 12/13/16 10:34 AST 35 IU/L (14-46) 12/13/16 10:34 ALT 48 IU/L (9-52) 12/13/16 10:34 Alkaline Phosphatase 42 IU/L (38-126) 12/13/16 10:34 Troponin I < 0.012 ng/mL (0.000-0.034) 12/13/16 10:34 Total Protein 6.0 g/dL (6.3-8.2) L 12/13/16 10:34 Albumin 3.0 g/dL (3.5-5.0) L 12/13/16 10:34 Lipase 157 IU/L (23-300) 12/13/16 10:34 Patient ABO/Rh A POSITIVE 12/13/16 10:34 Antibody Screen NEGATIVE 12/13/16 10:34 Crossmatch IS Only See Detail 12/13/16 10:34 Assessment & Plan Assessment: 56-year-old female presenting with dysfunctional uterine bleeding exacerbated by systemic anticoagulation Plan: 1. Dysfunctional uterine bleeding. Acute, new problem this provider, further workup indicated. Recent transvaginal ultrasound demonstrates thickened endometrium, most likely cause of bleeding, exacerbated by systemic anticoagulation -patient reports that her menorrhagia was significant while she was on Coumadin , despite having a therapeutic INR, and her D and C in August 2016 improved the issue but did not cure it -per Dr. Meade, the patient has been placed on high-dose progestin therapy as well as TXA, gauge effect -given both of these agents prothrombotic properties, she will be at increased risk of venous thromboembolism once she is beyond the half life of her Xarelto, and if the patient is not experiencing life-threatening bleeding, I would recommend discontinuing the TXA 1st, the progestin therapy 2nd -defer whether the patient requires surgical management to the primary obstetrics team 2. Acute blood loss anemia. Reviewed outside records including 12/11/2016 emergency department report by [facility], reports patient's hemoglobin level at 12, hemodynamics stability, outpatient follow-up arranged with her primary obstetrics provider Dr. Caitlyn Peters -decline in hemoglobin from 12-7.9 with syncopal symptoms, requiring emergent transfusion of 2 units PRBCs -repeat serum hemoglobin level now, and transfuse for hemoglobin less than 7, hypotension, or concomitant symptoms -continue monitor daily hemoglobin level 3. Acute kidney injury. Evidenced by serum creatinine level of 1.3 with baseline level around 0.7, secondary to renal hypoperfusion in the setting of blood loss -continue to monitor daily serum creatinine level, monitor urine output, continue IV fluids 4. History of recurrent venous thromboembolism. Index DVT was 2007 and was provoked, subsequent event was in 2012 and was idiopathic, resulting in the recommendations for lifelong systemic anticoagulation -the patient was adjusted from Coumadin to Xarelto for convenience, she also reports that she had been experiencing dysfunctional uterine bleeding while on Coumadin and wanted to trial another agent -discussed with patient and , provided them with information regarding the opportunity to trial other agents including Pradaxa or Eliquis vs. restarting Xarelto or re-trialing Coumadin -that being said, the immediate plan should be to temporarily hold Xarelto, monitor for stability above, and then reassess the exact timing every initiating systemic anticoagulation, regardless of whether it is with Coumadin or DOAC -ideally, the Xarelto should be held for 2-3 days after the last dosage (this morning) prior to surgery, but if more urgent surgical management of her dysfunctional uterine bleeding is required, she could undergo hysterectomy as soon as 36 hours after her most recent dosage -depending on how the bleeding progresses and surgical procedure, we should restart anticoagulation 24-48hrs after procedure -advised the patient and that she will be at risk for VTE beginning tomorrow AM, and we should place SCDs at that time, monitor VS for tachypnea/ tachycardia, and monitor for sx of chest pain Hospital Medicine will continue to consult in this patient's daily care. I have discussed this case w/ Hali Chavez, hospitalist provider, she has assigned patient to me for evaluation.
[2016-12-13] MEDS ORDERED: ACETAMINOPHEN 325 MG TAB PO PRN ×2 (16:33)
[2016-12-13] MEDS: medroxyPROGESTERone 10 MG TAB PO SCH ×4 (17:20→22:58)
--- NOTE | 2016-12-13 17:30 | SOAPPROG ---
SOAP Progress Note Assessment/Plan: Assessment: 56 yo perimenopausal female with symptomatic anemia secondary to acute vaginal bleeding. Plan: 1. Hold Xarelto in AM per hospitalist recommendations. 2. Transfuse an additional (3rd) unit of packed RBC. 3. Change MPA 20 mg PO dose frequency to TID and give an additional (2nd dose) now. 12/13/16 17:25 Subjective: Patient is resting in bed. She states that she feels somewhat better and less faint than earlier today while in ED. She reports she is still passing clots per vagina. Objective: Vital Signs Temp Pulse Resp BP Pulse Ox 37.1 C 90 16 103/70 100 12/13/16 16:35 12/13/16 16:35 12/13/16 16:35 12/13/16 16:35 12/13/16 16:35 Laboratory Results 12/13/16 16:45 12/12/16 12/13/16 12/14/16 05:59 05:59 05:59 Intake Total 1500 Output Total 328 Balance 1172 PT 29.3 SEC (12.0-15.0) H D 12/13/16 10:34 INR 2.74 (0.83-1.16) H 12/13/16 10:34 General: Not acutely distressed, alert, awake, appropriate. Lungs: clear in all jolly. Heart: RRR (90 bpm), no murmur detected. Abdomen: soft Extremities: good peripheral pulses Neuro: no weakness or numbness in face or any extremity. ICD10 Worksheet Patient Problems: Problems Problem Status Onset Acute blood loss anemia Acute DUB (dysfunctional uterine bleeding) Acute On rivaroxaban therapy Acute Pulmonary embolism Active Elevated INR Acute Endometrial thickening on ultra sound Acute
--- NOTE | 2016-12-13 17:42 | PDGENHP ---
History & Physical Chief Complaint: vaginal bleeding, faintness History of Present Illness: 56-year-old A1 perimenopausal white female presented to ED today with heavy vaginal bleeding and loss of consciousness x 1. She reports problems with heavier than normal vaginal bleeding for over 6 months, but very heavy vaginal bleeding since last week; she takes Xarelto for history of PE >5 years ago. She had D&C performed by Dr. Kiarra Peters in August 2016. She was seen on 12/11/16 in ED and pelvic US was performed. US showed thickened (1.2 cm) heterogenous endometrial lining, normal uterus and adnexal structures otherwise. She was scheduled to follow-up with Dr. Peters tomorrow AM in the clinic. Today she reports very heavy vaginal bleeding and passage of blood clots. She fainted on her way to vehicle on her way to ED. She reports that she has been taking norithendrone up to four times daily over past week. Bleeding started last week when she finished her norethindrone prescription on 12/05. Bleeding become heavy after <24 hours after finishing norethindrone. She spoke with Dr. Peters after bleeding began and was instructed to re-start norethindrone at up to four-times per day. Bleeding has worsened since, despite norethindrone. Patient takes Xarelto daily for history of PE (unknown etiology after extensive Hematology work-up). She also has a history of a DVT following knee surgery approximately 10 years ago. Prior to Xarelto (which was started in August 2016) she was taking Warfarin. Pertinent Past, Social, Family History: Past Medical History: Perimenopausal ( only has gone 6 months without bleeding), Obesity, s/p Gastric Bypass/sleeve ( 2006). Social: , denies ETOH, tobacco, illicit drug use; lives in [facility] ([facility] Family history: Non-contributory, no significant familial bleeding/clotting disorders or blood dyscrasias. Previous surgeries: Cholecystectomy (), knee surgery (~2006), gastric sleeve (2006) Relevant Physical Exam: General: appears pale, faint, not acutely distressed. HENT: atraumatic, normocephalic. Lungs: CTAB, no wheezes. Heart: tachycardic on initial exam. Abdomen: bowel sounds present, soft, uterus not enlarged on bimanual exam, no masses. Pelvis: speculum exam performed in ED, large blood clots in vagina, cervix slightly open with bright red blood trickling from external os. Extremities: no edema, no numbness or tingling. Neuro: no facial weakness or numbness or tingling Cardiorespiratory Assessment: Assessment: 56 year-old perimenopausal female with symptomatic anemia from acute blood loss from vaginal/uterine bleeding. Plan: Admit for observation. Transfuse 2 units packed red blood cells. Continue aggressive IV fluid hydration. Start medroxyprogesterone acetate, start tranexamic acid, serial vitals and H&H. Discuss plan with PATIENT ACCOUNTS MANAGER team; consider surgery (D&C, hysteroscopy, ablation or possible hysterectomy).
--- NOTE | 2016-12-13 17:59 | PDGENHP ---
History and Physical - Chief Complaint vaginal bleeding, faintness - History of Present Illness 56-year-old A1 perimenopausal white female presented to ED today with heavy vaginal bleeding and loss of consciousness x 1. She reports problems with heavier than normal vaginal bleeding for over 6 months, but very heavy vaginal bleeding since last week; she takes Xarelto for history of PE >5 years ago. She had D&C performed by Dr. Kiarra Peters in August 2016. She was seen on 12/11/16 in ED and pelvic US was performed. US showed thickened (1.2 cm) heterogenous endometrial lining, normal uterus and adnexal structures otherwise. She was scheduled to follow-up with Dr. Peters tomorrow AM in the clinic. Today she reports very heavy vaginal bleeding and passage of blood clots. She fainted on her way to vehicle on her way to ED. She reports that she has been taking norithendrone up to four times daily over past week. Bleeding started last week when she finished her norethindrone prescription on 12/05. Bleeding become heavy after <24 hours after finishing norethindrone. She spoke with Dr. Peters after bleeding began and was instructed to re-start norethindrone at up to four-times per day. Bleeding has worsened since, despite norethindrone. Patient takes Xarelto daily for history of PE (unknown etiology after extensive Hematology work-up). She also has a history of a DVT following knee surgery approximately 10 years ago. Prior to Xarelto (which was started in August 2016) she was taking Warfarin. History Information - Allergies/Home Medication List Allergies/Adverse Reactions: ciprofloxacin [From Cipro] Allergy (Unknown, Verified 12/13/16 10:06) Hives ciprofloxacin HCl [From Cipro] Allergy (Unknown, Verified 12/13/16 10:06) Hives clarithromycin [From Biaxin] Allergy (Unknown, Verified 12/13/16 10:06) Hives Home Medications: Herbals/Supplements -Info Only 1 ea PO DAILY 08/25/16 [Last Taken 08/25/16] Norethindrone Acetate 5 mg PO TID #0 08/25/16 [Last Taken 12/13/16] Rivaroxaban [Xarelto 10mg (*)] 20 mg PO DAILY 08/31/16 [Last Taken 12/13/16] Acetaminophen [Tylenol 325mg (*)] 325 mg PO DAILY PRN 12/13/16 [Last Taken Unknown] Cholecalciferol Vit D3 [Vitamin D3 (*)] 3,000 units PO DAILY 12/13/16 [Last Taken Unknown] Ferrous Sulfate [Ferrous Sulf 325 MG (*)] 325 mg PO DAILY 12/13/16 [Last Taken Unknown] Multivitamins [Multivitamin (*)] 1 each PO DAILY 12/13/16 [Last Taken Unknown] I have personally reviewed and updated: family history, medical history, social history, surgical history Past Medical History: obesity, h/o PE (~5 years ago), chronic anticoagulation since PE, unknown etiology of PE (after hematology workup), h/o DVT following knee surgery (~2006) - Past Medical History DVT (Provoked in 2007, received systemic anticoagulation with Coumadin for 3 months), pulmonary embolism (Unprovoked, 2012, initiated on Lovenox and Coumadin , negative hypercoagulable workup, seen in the outpatient setting by Dr. Liam Jeffery, was adjusted to Xarelto during the summer of 2016) Additional medical history: Postmenopausal menorrhagia, with D and C in August 2016 as well as initiation of progestin therapy - Surgical History Additional surgical history: Gastric sleeve. D&C August 2016. Cholecystectomy. ACL - Family History Additional family history: Family history of blood dyscrasias or venous thromboembolism - Social History Smoking Status: Never smoked Alcohol Use: None Drug Use: None Additional social history: Normally independent in her ADLs Review of Systems Review of Systems: ROS: 10pt was reviewed & negative except for what was stated in HPI & below Physical Exam Physical Exam: Temp Pulse Resp BP Pulse Ox 36.8 C 78 20 103/67 99 12/13/16 17:25 12/13/16 17:25 12/13/16 17:25 12/13/16 17:25 12/13/16 17:25 Constitutional: no apparent distress Eyes: PERRL Cardiovascular: regular rate and rhythym Respiratory: no respiratory distress Gastrointestinal: normoactive bowel sounds, soft, non-tender abdomen, no palpable masses Genitourinary: other (SSE revealed blood clots in vagina, no vaginal or cervical laceration, slightly open cervical os, bright red blood trickling from cervix) Skin: other (pale color on initial exam) Musculoskeletal: generalized weakness Neurologic: AAOx3, sensation intact bilaterally Psychiatric: interacting appropriately, not encephalopathic Lymph, Heme, Immunologic: no cervical LAD, no supraclavicular LAD Lab Data & Imaging Review 12/13/16 16:45 12/13/16 10:34 WBC 8.62 10^3/uL (3.80-9.50) 12/13/16 10:34 RBC 2.73 10^6/uL (4.18-5.33) L 12/13/16 10:34 Hgb 8.9 g/dL (12.6-16.3) L 12/13/16 16:45 Hct 25.6 % (38.0-47.0) L 12/13/16 16:45 MCV 91.6 fL (81.5-99.8) 12/13/16 10:34 MCH 28.9 pg (27.9-34.1) 12/13/16 10:34 MCHC 31.6 g/dL (32.4-36.7) L 12/13/16 10:34 RDW 14.9 % (11.5-15.2) 12/13/16 10:34 Plt Count 320 10^3/uL (150-400) 12/13/16 10:34 MPV 9.6 fL (8.7-11.7) 12/13/16 10:34 Neut % (Auto) 78.9 % (39.3-74.2) H 12/13/16 10:34 Lymph % (Auto) 16.7 % (15.0-45.0) 12/13/16 10:34 [place] % (Auto) 3.6 % (4.5-13.0) L 12/13/16 10:34 Eos % (Auto) 0.1 % (0.6-7.6) L 12/13/16 10:34 Baso % (Auto) 0.2 % (0.3-1.7) L 12/13/16 10:34 Nucleat RBC Rel Count 0.0 % (0.0-0.2) 12/13/16 10:34 Absolute Neuts (auto) 6.80 10^3/uL (1.70-6.50) H 12/13/16 10:34 Absolute Lymphs (auto) 1.44 10^3/uL (1.00-3.00) 12/13/16 10:34 Absolute Monos (auto) 0.31 10^3/uL (0.30-0.80) 12/13/16 10:34 Absolute Eos (auto) 0.01 10^3/uL (0.03-0.40) L 12/13/16 10:34 Absolute Basos (auto) 0.02 10^3/uL (0.02-0.10) 12/13/16 10:34 Absolute Nucleated RBC 0.00 10^3/uL (0-0.01) 12/13/16 10:34 Immature Gran % 0.5 % (0.0-1.1) 12/13/16 10:34 Immature Gran # 0.04 10^3/uL (0.00-0.10) 12/13/16 10:34 PT 29.3 SEC (12.0-15.0) H D 12/13/16 10:34 INR 2.74 (0.83-1.16) H 12/13/16 10:34 APTT 28.0 SEC (23.0-38.0) 12/13/16 10:34 Sodium 140 mEq/L (134-144) 12/13/16 10:34 Potassium 3.5 mEq/L (3.5-5.2) 12/13/16 10:34 Chloride 105 mEq/L (97-110) 12/13/16 10:34 Carbon Dioxide 20 mEq/l (22-31) L 12/13/16 10:34 Anion Gap 15 mEq/L (8-16) 12/13/16 10:34 BUN 17 mg/dL (7-23) 12/13/16 10:34 Creatinine 1.1 mg/dL (0.6-1.0) H 12/13/16 10:34 Estimated GFR 52 12/13/16 10:34 Glucose 125 mg/dL (70-100) H 12/13/16 10:34 Calcium 8.4 mg/dL (8.5-10.4) L 12/13/16 10:34 Total Bilirubin 0.2 mg/dL (0.1-1.4) 12/13/16 10:34 Conjugated Bilirubin 0.0 mg/dL (0.0-0.5) 12/13/16 10:34 Unconjugated Bilirubin 0.2 mg/dL (0.0-1.1) 12/13/16 10:34 AST 35 IU/L (14-46) 12/13/16 10:34 ALT 48 IU/L (9-52) 12/13/16 10:34 Alkaline Phosphatase 42 IU/L (38-126) 12/13/16 10:34 Troponin I < 0.012 ng/mL (0.000-0.034) 12/13/16 10:34 Total Protein 6.0 g/dL (6.3-8.2) L 12/13/16 10:34 Albumin 3.0 g/dL (3.5-5.0) L 12/13/16 10:34 Lipase 157 IU/L (23-300) 12/13/16 10:34 Patient ABO/Rh A POSITIVE 12/13/16 10:34 Antibody Screen NEGATIVE 12/13/16 10:34 Crossmatch IS Only See Detail 12/13/16 10:34 Imaging Review: Pelvic US performed at this facility on 12/11 was reviewed: Transvaginal imaging ; thickened (1.2 cm) heterogenous endometrial lining; no fibroids or myometrial abnormalities; anteverted uterus measuring 9.7x5.6x7.1cm; right ovary appears normal, left ovary not visualized; no adnexal masses or free pelvic fluid. Assessment & Plan Assessment: 56 year-old perimenopausal female with: Acute Vaginal bleeding Acute blood loss anemia (Acute) On rivaroxaban therapy (Acute) Plan: Plan: 1. Vaginal bleeding: start MPA 20 PO BID 2. Anemia: transfuse 2 units PRBCs 3. Xarelto therapy: consult hospitalist team, hold until consult.
[2016-12-14] MEDS ORDERED: HYDROCODONE/APAP 5/325 TAB PO PRN ×2 (07:05)
[2016-12-14] MEDS: medroxyPROGESTERone 10 MG TAB PO SCH ×6 (08:02→22:50)
[2016-12-14] MEDS: CHOLECALCIFEROL VIT D3 1,000 UNITS TAB PO SCH ×2 (08:02)
[2016-12-14] MEDS: TRANEXAMIC ACID 650 MG TAB PO SCH ×2 (08:02)
[2016-12-14] MEDS: FERROUS SULFATE 325 MG TAB PO SCH ×4 (08:03→20:20)
--- NOTE | 2016-12-14 08:18 | SOAPPROG ---
DANNY Progress Note Assessment/Plan: Assessment: 56 yo perimenopausal female with symptomatic anemia secondary to acute vaginal bleeding. As of 8AM of 12/14/16, vaginal bleeding has significantly slowed. Plan: 1. Hold Xarelto in AM per hospitalist recommendations. 2. Transfuse an additional (3rd) unit of packed RBC. 3. Change MPA 20 mg PO dose frequency to TID and give an additional (2nd dose) now. 12/13/16 17:25 12/14/16 08:14 1. Continue to hold Xarelto, PT/PTT pending. 2. Hold additional transfusion today. 3. Discuss management plan with Dr. Langston, possible ablation today or tomorrow. Subjective: Marialuisa reports some pain in left occipital region of scalp--where she had scalp laceration following LOC. She reports significantly less vaginal bleeding overnight. She feels less faint. She is ambulating. She is voiding on her own. Overall feels better from admission yesterday. Objective: Vital Signs Temp Pulse Resp BP Pulse Ox 36.9 C 82 16 99/64 L 97 12/14/16 04:00 12/14/16 04:00 12/14/16 04:00 12/14/16 04:00 12/14/16 04:00 Laboratory Results 12/14/16 06:30 12/14/16 06:30 12/13/16 12/14/16 12/15/16 05:59 05:59 05:59 Intake Total 2577 Output Total 1202 Balance 1375 PT 29.3 SEC (12.0-15.0) H D 12/13/16 10:34 INR 2.74 (0.83-1.16) H 12/13/16 10:34 NAD HENT: scalp laceration is clean, dry intact with 3 matteo Lungs: clear Heart: RRR Abdomen: soft, non-tender Pad-count/weight: less bleeding overnight than yesterday Extremities: no significant edema, numbness or weakness ICD10 Worksheet Patient Problems: Problems Problem Status Onset Acute blood loss anemia Acute DUB (dysfunctional uterine bleeding) Acute On rivaroxaban therapy Acute Pulmonary embolism Active Elevated INR Acute Endometrial thickening on ultra sound Acute
[2016-12-14] MEDS: D5W LR 1,000 ML IV SCH ×4 (08:41→17:27)
[2016-12-14] MEDS ORDERED: Herbals/Supplements -Info Only PO SCH ×2 (09:00)
[2016-12-14] MEDS ORDERED: FERROUS SULFATE 325 MG TAB PO SCH ×2 (09:00)
[2016-12-14 09:11] LABS: INR 1.46 (0.83-1.16); PROTIME(PATIENT) 17.7 SEC (12.0-15.0)
--- NOTE | 2016-12-14 10:04 | SOAPPROG ---
DANNY Progress Note Assessment/Plan: Assessment: 56 y/o perimenopausal female with DUB and anemia secondary to acute blood loss Plan: Xarelto is being held for now Will discontinue TXA and continue Provera since her bleeding has slowed down significantly Will start IV iron; s/p 3 units PRBCs; H/H stable Plan on Hysteroscopy, D&C and ablation in am 11 NPO after mn 12/14/16 10:04 Subjective: Pt seen and examined. She states vaginal bleeding has decreased significantly. Denies any pain or cramping. She is dizzy when up OOB this am. She is using a bedside commode. Denies any f/c/n/v/CP or SOB. Objective: Vital Signs Temp Pulse Resp BP Pulse Ox 36.9 C 82 16 99/64 L 97 12/14/16 04:00 12/14/16 04:00 12/14/16 04:00 12/14/16 04:00 12/14/16 04:00 Laboratory Results 12/14/16 06:30 12/14/16 06:30 12/13/16 12/14/16 12/15/16 05:59 05:59 05:59 Intake Total 2577 Output Total 1202 Balance 1375 PT 17.7 SEC (12.0-15.0) H D 12/14/16 08:45 INR 1.46 (0.83-1.16) H 12/14/16 08:45 Physical Exam - Physical Exam General Appearance: WD/WN, alert, no apparent distress Respiratory: lungs clear, normal breath sounds Cardiac/Chest: regular rate, rhythm Abdomen: normal bowel sounds, non-tender, soft Pelvic Exam: deferred Extremities: non-tender, normal inspection Neuro/Psych: alert, normal mood/affect, oriented x 3 ICD10 Worksheet Patient Problems: Problems Problem Status Onset Acute blood loss anemia Acute DUB (dysfunctional uterine bleeding) Acute On rivaroxaban therapy Acute Pulmonary embolism Active Elevated INR Acute Endometrial thickening on ultra sound Acute
[2016-12-14] MEDS ORDERED: SODIUM FERRIC GLUCONAT/SUCROSE 125 MG in NS 100 ML IV ONE (10:11)
[2016-12-14] MEDS ORDERED: ceFAZolin 2 GM/DEXTROSE 100 ML IV ONE ×4 (10:13→10:45)
[2016-12-14] MEDS: ACETAMINOPHEN 325 MG TAB PO PRN ×6 (10:32→20:20)
[2016-12-14] MEDS: MULTIVITAMINS 1 EACH TAB PO SCH ×2 (11:25)
--- NOTE | 2016-12-14 16:25 | HOSPPROG ---
Hospitalist Progress Note Assessment/Plan: Assessment: 56-year-old female presenting with dysfunctional uterine bleeding exacerbated by systemic anticoagulation for hx of recurrent VTE Plan: 1. Dysfunctional uterine bleeding. Acute, 2/2 endometrium + systemic anticoagulation -d/w Dr. Meade, plan for scheduled ablation tomorrow AM -defer duration of progestin to ABORIGINAL LIAISON OFFICER, but recommend stopping as soon as safe ( likely s/p ablation), discontinuing TXA now 2. Acute blood loss anemia. Reasonable response from transfusion o/n given ongoing bleeding, symptomatic Hgb 8.4 this AM, agree w/ 3rd unit transfusion -IV iron now and daily, then can continue PO after discharge 3. Acute kidney injury. Evidenced by serum creatinine level of 1.3 with baseline level around 0.7, secondary to renal hypoperfusion in the setting of blood loss -resolved 4. History of recurrent venous thromboembolism. Index DVT was 2007 and was provoked, subsequent event was in 2012 and was idiopathic, resulting in the recommendations for lifelong systemic anticoagulation -counseled patient regarding safest time course for surgery following discontinuation of xarelto, ideally 48hrs, so ablation scheduled for tomorrow since bleeding has slowed -if the procedure is not complicated by excessive bleeding, then is it reasonable to initiate whichever method of future anticoagulation she chooses ( we discussed lovenox/coumadin, xarelto, eliquis, pradaxa) on the day AFTER surgery and monitor for 24hrs beyond reinitiation to ensure that excessive bleeding does not reoccur -counseled patient and that we can decide on which agent she would like tomorrow, so that we can get it initiated on 11 AM Hospital Medicine will continue to consult in this patient's daily care. Subjective: lightheaded this AM, no BM Objective: Vital Signs Temp Pulse Resp BP Pulse Ox 36.5 C 81 16 100/64 96 12/14/16 14:10 12/14/16 14:10 12/14/16 14:10 12/14/16 14:10 12/14/16 14:10 Laboratory Results 12/14/16 06:30 12/14/16 06:30 12/13/16 12/14/16 12/15/16 05:59 05:59 05:59 Intake Total 2577 Output Total 1202 744 Balance 1375 -744 PT 17.7 SEC (12.0-15.0) H D 12/14/16 08:45 INR 1.46 (0.83-1.16) H 12/14/16 08:45 - Time Spent With Patient Time Spent with Patient: greater than 35 minutes Time Spent with Patient: Greater than 35 minutes spent on this patients care, greater than 50% of time spent counseling, educating, and coordinating care regarding the above mentioned plan. - Physical Exam Constitutional: no apparent distress, appears nourished, not in pain, No uncomfortable Cardiovascular: regular rate and rhythym, no murmur, rub, or gallop Respiratory: no respiratory distress, no rales or rhonchi, clear to auscultation Gastrointestinal: normoactive bowel sounds, soft, non-tender abdomen, no palpable masses, No distension Neurologic: AAOx3 Psychiatric: interacting appropriately, not anxious, not encephalopathic, thought process linear ICD10 Worksheet Patient Problems: Problems Problem Status Onset DUB (dysfunctional uterine bleeding) Acute On rivaroxaban therapy Acute Acute blood loss anemia Acute Elevated INR Acute Endometrial thickening on ultra sound Acute Pulmonary embolism Active
[2016-12-15] MEDS: ACETAMINOPHEN 325 MG TAB PO PRN ×4 (06:23→13:37)
[2016-12-15] MEDS ORDERED: ceFAZolin 2 GM/DEXTROSE 100 ML IV ONE ×2 (07:00)
--- NOTE | 2016-12-15 07:30 | SOAPPROG ---
DANNY Progress Note Assessment/Plan: Assessment: 56 yo perimenopausal female with symptomatic anemia secondary to acute vaginal bleeding. As of 8AM of 12/14/16, vaginal bleeding has significantly slowed. Plan: 1. Hold Xarelto in AM per hospitalist recommendations. 2. Transfuse an additional (3rd) unit of packed RBC. 3. Change MPA 20 mg PO dose frequency to TID and give an additional (2nd dose) now. 12/13/16 17:25 12/14/16 08:14 1. Continue to hold Xarelto, PT/PTT pending. 2. Hold additional transfusion today. 3. Discuss management plan with Dr. Langston, possible ablation today or tomorrow. 12/15/16 07:27 Assessment: 56 yo perimenopausal female with symptomatic anemia secondary to acute vaginal bleeding. Hospital day#3. Patient reports increased bleeding/passage of clots overnight. HCT = 21. Plan: OR today for hysteroscopy, D&C, and endometrial ablation. Consider transfusion of additional units of blood. Will continue to request recommendations regarding anticoagulation during post-operative period. Patient has been informed regarding options for management. She desires to proceed with surgery after reviewing risks (DVT, PE, damage to nearby organs, additional bleeding), benefits and alternatives. Subjective: Resting comfortably. Reports passage of large clots early this AM. Denies significant weakness or faintness. Denies significant pain. Objective: Vital Signs Temp Pulse Resp BP Pulse Ox 36.7 C 84 16 103/69 97 12/15/16 04:00 12/15/16 04:00 12/15/16 04:00 12/15/16 04:00 12/15/16 04:00 Laboratory Results 12/15/16 06:49 12/14/16 12/15/16 12/16/16 05:59 05:59 05:59 Intake Total 2577 Output Total 1202 2878 Balance 1375 -2878 PT 17.7 SEC (12.0-15.0) H D 12/14/16 08:45 INR 1.46 (0.83-1.16) H 12/14/16 08:45 Vitals: Reviewed, Stable General: NAD, AAOx3 Lungs: CTAB Heart: RRR Abdomen: soft, NT Pelvic exam: not performed this AM Extremities: no swelling, pain numbness or tingling in BLE ICD10 Worksheet Patient Problems: Problems Problem Status Onset Acute blood loss anemia Acute DUB (dysfunctional uterine bleeding) Acute On rivaroxaban therapy Acute Pulmonary embolism Active Elevated INR Acute Endometrial thickening on ultra sound Acute
[2016-12-15] MEDS: medroxyPROGESTERone 10 MG TAB PO SCH ×6 (08:19→22:28)
[2016-12-15] MEDS ORDERED: LR 1,000 ML IV ONE ×2 (09:00)
[2016-12-15] MEDS ORDERED: ceFAZolin 2 GM in D5W 100 ML IV ONE (09:34)
--- NOTE | 2016-12-15 09:34 | PDHPUP ---
History & Physical Update H&P update statement: This history and physical update is based on an assessment of the patient which was completed after admission or registration (within 24 hours), but prior to the surgery/procedure. I have reviewed history, physical exam and labs. Although HCT is now 21, patient is not orthostatic. Plan will be to proceed with surgery as planned and give additional PRBC units if needed. This has been discussed with patient and she consents to plan. H&P changes: drop in HCT (24->21)
[2016-12-15] MEDS ORDERED: ceFAZolin 2 GM/SWFI 2 GM/20 ML SYR IVP ONE ×2 (10:00)
[2016-12-15] MEDS ORDERED: MIDAZOLAM 2 MG/2 ML VIAL ONE ×2 (10:03)
[2016-12-15] MEDS ORDERED: MIDAZOLAM 2 MG/2 ML VIAL IVP ONE ×2 (10:04)
--- NOTE | 2016-12-15 10:04 | PDANEPAE ---
ANE History of Present Illness dlysfunctional bleeding ANE Past Medical History - Cardiovascular History Hx Hypertension: No Hx Arrhythmias: No Hx Chest Pain: No Hx Coronary Artery / Peripheral Vascular Disease: No Hx CHF / Valvular Disease: No Hx Palpitations: No - Pulmonary History Hx COPD: No Hx Asthma/Reactive Airway Disease: No Hx Recent Upper Respiratory Infection: No Hx Oxygen in Use at Home: No Hx Sleep Apnea: No Sleep Apnea Screening Result - Last Documented: Negative - Neurologic History Hx Cerebrovascular Accident: No Hx Seizures: No Hx Dementia: No - Endocrine History Hx Diabetes: No - Renal History Hx Renal Disorders: No - Liver History Hx Hepatic Disorders: No - Neurological & Psychiatric Hx Hx Neurological and Psychiatric Disorders: No - Cancer History Hx Cancer: No - Congenital Disorder History Hx Congenital Disorders: No - GI History Hx Gastrointestinal Disorders: Yes Gastrointestinal History Comment: HX OF SLEEVE GASTRECTOMY - Other Health History Other Health History: HX-PE UNK CAUSE X1. DVT POST OP X1. WEARS GLASSES. PRONE TO ECZEMA - Chronic Pain History Chronic Pain: No - Surgical History Prior Surgeries: ACL REPAIR L W/POST OP DVT. PRASANTH. BONE IN LEFT WRIST REPAIRED. GASTRIC SLEEVE. D&C X2 ANE Review of Systems Review of Systems: ANE Patient History - Allergies Allergies/Adverse Reactions: ciprofloxacin [From Cipro] Allergy (Unknown, Verified 12/13/16 10:06) Hives ciprofloxacin HCl [From Cipro] Allergy (Unknown, Verified 12/13/16 10:06) Hives clarithromycin [From Biaxin] Allergy (Unknown, Verified 12/13/16 10:06) Hives - Home Medications Home Medications: Herbals/Supplements -Info Only 1 ea PO DAILY 08/25/16 [Last Taken 08/25/16] Norethindrone Acetate 5 mg PO TID #0 08/25/16 [Last Taken 12/13/16] Rivaroxaban [Xarelto 10mg (*)] 20 mg PO DAILY 08/31/16 [Last Taken 12/13/16] Acetaminophen [Tylenol 325mg (*)] 325 mg PO DAILY PRN 12/13/16 [Last Taken Unknown] Cholecalciferol Vit D3 [Vitamin D3 (*)] 3,000 units PO DAILY 12/13/16 [Last Taken Unknown] Ferrous Sulfate [Ferrous Sulf 325 MG (*)] 325 mg PO DAILY 12/13/16 [Last Taken Unknown] Multivitamins [Multivitamin (*)] 1 each PO DAILY 12/13/16 [Last Taken Unknown] - NPO status NPO Since - Liquids (Date): 12/14/16 NPO Since - Liquids (Time): 23:00 NPO Since - Solids (Date): 12/14/16 NPO Since - Solids (Time): 08:30 - Smoking Hx Smoking Status: Never smoked - Alcohol Use Alcohol Use: None - Family Anes Hx Family Hx Anesthesia Complications: NONE ANE Labs/Vital Signs - Labs Result Diagrams: 12/15/16 06:49 12/15/16 06:49 - Vital Signs Blood Pressure: 85/50 Heart Rate: 78 Respiratory Rate: 16 O2 Sat (%): 99 Height: 172.72 cm Weight: 95.254 kg ANE Physical Exam - Airway Neck exam: FROM Mallampati Score: Class 1 Mouth exam: normal dental/mouth exam - Pulmonary Pulmonary: no respiratory distress - Cardiovascular Cardiovascular: regular rate and rhythym - ASA Status ASA Status: II ANE Anesthesia Plan Anesthesia Plan: GA w LMA
[2016-12-15] MEDS ORDERED: PROPOFOL 200 MG/20 ML VIAL ONE ×2 (10:07)
[2016-12-15] MEDS ORDERED: fentaNYL 100 MCG/2 ML INJ ONE ×4 (10:07→11:36)
[2016-12-15] MEDS ORDERED: NALOXONE HCL 0.4 MG/ML INJ IVP PRN ×2 (10:44)
[2016-12-15] MEDS ORDERED: HYDROmorphONE/DILAUDID 1 MG/ML INJ IVP PRN ×2 (10:44)
[2016-12-15] MEDS ORDERED: PROMETHAZINE HCL 25 MG/ML INJ IVP PRN ×2 (10:44)
[2016-12-15] MEDS ORDERED: ONDANSETRON 4 MG/2 ML VIAL IVP PRN ×2 (10:44)
[2016-12-15] MEDS ORDERED: HYDROCODONE/APAP 5/325 TAB PO PRN ×2 (10:44)
--- NOTE | 2016-12-15 11:23 | POSTANESTH ---
Post Anesthetic Evaluation Cardiovascular Status: Normal, Stable Respiratory Status: Normal, Stable Level of Consciousness/Mental Status: Can Participate in Eval Pain Control: Adequate, Prn Tx Ordered Nausea/Vomiting Control: Adequate, Prn Tx Ordered Complications Possibly Related to Anesthesia: None Noted
[2016-12-15] MEDS ORDERED: SILVER NITRATE APPLICATOR 1 APPL TP ONE ×2 (11:25)
[2016-12-15] MEDS: fentaNYL 100 MCG/2 ML INJ IVP PRN ×4 (11:39→11:49)
--- NOTE | 2016-12-15 11:42 | POSTOPPROG ---
Post Op Note Date of Operation: 12/15/16 Surgeon: Benjamin Meade Anesthesiologist Physician: Michelle Garcia MD Anesthesia: GET(General Endotracheal) Pre-op Diagnosis: Perimenopausal bleeding, anemia Post-op Diagnosis: Same Indication: 56 year-old with heavy vaginal bleeding unresponsive to medical mgmt Procedure: Hysteroscopy, D&C, endometrial sampling with morcelator, ablation Findings: Open cervix, enlarged uterus (sound to 12 cm), blood clots in endo cavity Inf/Abcess present in the surg proc area at time of surgery?: No Depth: Superfical (Skin SQ) EBL: 50-100 Total fluids administered: 600 mL LR Complications: None immediate
[2016-12-15] MEDS ORDERED: MEPERIDINE 25 MG/ML SYR ONE ×2 (11:54)
[2016-12-15] MEDS ORDERED: MEPERIDINE 25 MG/ML SYR IVP ONE ×2 (12:15)
[2016-12-15] MEDS ORDERED: ACETAMINOPHEN 325 MG TAB PO PRN ×2 (13:28)
[2016-12-15] MEDS ORDERED: diphenhydrAMINE 50 MG CAP PO PRN ×2 (13:29)
[2016-12-15] MEDS: CHOLECALCIFEROL VIT D3 1,000 UNITS TAB PO SCH ×2 (13:38)
[2016-12-15] MEDS: MULTIVITAMINS 1 EACH TAB PO SCH ×4 (13:38→13:39)
[2016-12-15] MEDS: FERROUS SULFATE 325 MG TAB PO SCH ×4 (13:42→21:09)
[2016-12-15] MEDS: oxyCODONE IR 5 MG TAB PO PRN ×4 (13:43→18:32)
[2016-12-15] MEDS ORDERED: diphenhydrAMINE 25 MG CAP PO PRN ×2 (14:00)
--- NOTE | 2016-12-15 16:28 | HOSPPROG ---
Hospitalist Progress Note Assessment/Plan: Assessment: 56-year-old female presenting with dysfunctional uterine bleeding exacerbated by systemic anticoagulation for hx of recurrent VTE Plan: 1. Dysfunctional uterine bleeding. Acute, 2/2 endometrium + systemic anticoagulation, POD#0 from partial ablation -if condition persists, plan will be for FRANSISCO -recommend stopping the TXA now as we are restarting anticoagulation -can continue progestin as long as deemed necessary by Coat Joiner Lockstitch -period of monitoring at discretion of primary [employer] service 2. Acute blood loss anemia. Ongoing loss this AM w/ declining Hgb 7.1, transfused 4th unit, repeat Hgb level this AM to gauge response -s/p one dose IV iron -repeat CBC in AM, transfuse/iron if needed 3. Acute kidney injury. Resolved 4. History of recurrent venous thromboembolism. Index DVT was 2007 and was provoked, subsequent event was in 2012 and was idiopathic, resulting in the recommendations for lifelong systemic anticoagulation -counseled patient, we agree that in the short term, while possible procedures ( FRANSISCO) may be necessary, it makes sense to use lovenox bridge w/ coumadin, and gauge whether bleeding reoccurs -will reinitiate systemic anticoagulation 11/4 AM (lovenox 100mg bid), and give first dose of coumadin today (5mg), begin monitoring INR 115 -IF she rebleeds and FRANSISCO planned, THEN stop lovenox and can perform surg after 1 skipped dose, checking INR before to ensure no reversal needed Hospital Medicine will continue to consult in this patient's daily care. Subjective: BM last night, no headache Objective: Vital Signs Temp Pulse Resp BP Pulse Ox 36.1 C 82 16 103/69 98 12/15/16 15:30 12/15/16 15:30 12/15/16 15:30 12/15/16 15:30 12/15/16 15:30 Laboratory Results 12/15/16 06:49 12/15/16 06:49 12/14/16 12/15/16 12/16/16 05:59 05:59 05:59 Intake Total 2577 700 Output Total 1202 2878 570 Balance 1375 -2878 130 PT 17.7 SEC (12.0-15.0) H D 12/14/16 08:45 INR 1.46 (0.83-1.16) H 12/14/16 08:45 - Time Spent With Patient Time Spent with Patient: greater than 35 minutes Time Spent with Patient: Greater than 35 minutes spent on this patients care, greater than 50% of time spent counseling, educating, and coordinating care regarding the above mentioned plan. - Physical Exam Constitutional: no apparent distress, appears nourished, not in pain Cardiovascular: regular rate and rhythym, systolic murmur (I/ at all valves), No tachycardia, No edema Respiratory: no respiratory distress, no rales or rhonchi, clear to auscultation Gastrointestinal: normoactive bowel sounds, soft, non-tender abdomen, no palpable masses Neurologic: AAOx3, No facial droop Psychiatric: interacting appropriately, not anxious, not encephalopathic, thought process linear ICD10 Worksheet Patient Problems: Problems Problem Status Onset DUB (dysfunctional uterine bleeding) Acute On rivaroxaban therapy Acute Acute blood loss anemia Acute Elevated INR Acute Endometrial thickening on ultra sound Acute Pulmonary embolism Active
[2016-12-15] MEDS: WARFARIN SODIUM 5 MG TAB PO SCH ×2 (16:41)
[2016-12-15] MEDS: TRANEXAMIC ACID 650 MG TAB PO SCH ×4 (16:41→22:27)
--- NOTE | 2016-12-15 22:16 | SUROPNOTE ---
[facility] Operative Report - Surgery OPERATIVE REPORT DATE OF OPERATION: 12/15/16 SURGEON: Thomas Meade MD DRUM FILLER: Michelle Garcia MD ANESTHESIA: General Endotracheal ANESTHESIOLOGIST: Dr. Megan Bass PREOPERATIVE DIAGNOSES: 1. Perimenopausal bleeding. 2. Symptomatic anemia. 3. Chronic anticoagulation. POSTOPERATIVE DIAGNOSES: 1. Perimenopausal bleeding. 2. Symptomatic anemia. 3. Chronic anticoagulation. PROCEDURE PERFORMED: 1. Diagnostic hysteroscopy. 2. Hysteroscopic sampling endometrial cavity (with hysteroscopic morcellator). 3. Removal of large endometrial blood clots. 4. Endometrial ablation. FINDINGS: 1. Enlarged uterus. 2. Open cervix. 3. Large blood clot within endometrial cavity. SPECIMENS: Endometrial curettings. EBL: 100 mL HYSTEROSCOPIC FLUID DEFICIT: 800 mL INDICATIONS: 56-year-old perimenopausal white female on chronic anticoagulation with persistent abnormal uterine bleeding despite discontinuing anticoagulation , tranexamic acid therapy and progesterone therapy. DESCRIPTION OF PROCEDURE: After appropriate consent was obtained patient was taken to OR. General endotracheal anesthesia was found to be adequate and patient was placed in lithotomy position. 2 grams Kefzol given IV. Patient was prepped and draped according to usual sterile fashion. Time out was performed. Bladder was emptied with red rubber catheter. An exam under anesthesia revealed an enlarged anteverted mobile uterus. Weighted speculum was placed in vagina and cervix was found to be open. Anterior lip of cervix was grasped with Allis clamp. Hysteroscope was introduced through cervix into endometrial cavity. Large polypoid structure was noted floating within the endometrial cavity obliterating view of entire cavity. Endometrial lining appeared white and thin. Attempts with the hysteroscopic morcellator to shave down the polypoid structure were unsuccessful. Hysteroscope was removed and polyp forceps were introduced through cervix. Several passes with forceps produced clumps of old (dark red) blood clots. Medium-sized curette was also used to scrape the endometrial lining in a systematic, 360-degree fashion. Curetting was performed until a gritty cry was felt in all portions of endometrial cavity. Hysteroscope was re-introduced into to endometrial cavity and the cavity was noted to be empty. Both tubal ostia were seen. Hysteroscope was removed and Bronwyn endometrial ablation device was prepared and then inserted into endometrial cavity. The proper steps for Bronwyn ablation were followed (Bronwyn rep, [employer] [place] was present) and a 120 second burn was performed. Hysteroscope was once again reintroduced into endometrial cavity. Burned tissue was seen on approximately 60% of the endometrial surface. Fundal portions of endometrial cavity appeared raw and not burned. Hysteroscope was removed. Instruments were removed from cervix and vagina. Bleeding was noted from cervix and was stopped with [id number] stitch using 2-0 Vicryl suture. Excellent hemostasis was noted. At the end of procedure sponge, lap and needle count was correct x 2. Patient tolerated procedure well and she was taken to PACU awake and in stable condition.
--- NOTE | 2016-12-15 22:16 | SUROPNOTE ---
[facility] Operative Report - Surgery OPERATIVE REPORT DATE OF OPERATION: 12/15/16 SURGEON: Thomas Meade MD PUBLICATION DISTRIBUTOR: Michelle Garcia MD ANESTHESIA: General Endotracheal ANESTHESIOLOGIST: Dr. Megan Bass PREOPERATIVE DIAGNOSES: 1. Perimenopausal bleeding. 2. Symptomatic anemia. 3. Chronic anticoagulation. POSTOPERATIVE DIAGNOSES: 1. Perimenopausal bleeding. 2. Symptomatic anemia. 3. Chronic anticoagulation. PROCEDURE PERFORMED: 1. Diagnostic hysteroscopy. 2. Hysteroscopic sampling endometrial cavity (with hysteroscopic morcellator). 3. Removal of large endometrial blood clots. 4. Endometrial ablation. FINDINGS: 1. Enlarged uterus. 2. Open cervix. 3. Large blood clot within endometrial cavity. SPECIMENS: Endometrial curettings. EBL: 100 mL HYSTEROSCOPIC FLUID DEFICIT: 800 mL INDICATIONS: 56-year-old perimenopausal white female on chronic anticoagulation with persistent abnormal uterine bleeding despite discontinuing anticoagulation , tranexamic acid therapy and progesterone therapy. DESCRIPTION OF PROCEDURE: After appropriate consent was obtained patient was taken to OR. General endotracheal anesthesia was found to be adequate and patient was placed in lithotomy position. 2 grams Kefzol given IV. Patient was prepped and draped according to usual sterile fashion. Time out was performed. Bladder was emptied with red rubber catheter. An exam under anesthesia revealed an enlarged anteverted mobile uterus. Weighted speculum was placed in vagina and cervix was found to be open. Anterior lip of cervix was grasped with Allis clamp. Hysteroscope was introduced through cervix into endometrial cavity. Large polypoid structure was noted floating within the endometrial cavity obliterating view of entire cavity. Endometrial lining appeared white and thin. Attempts with the hysteroscopic morcellator to shave down the polypoid structure were unsuccessful. Hysteroscope was removed and polyp forceps were introduced through cervix. Several passes with forceps produced clumps of old (dark red) blood clots. Medium-sized curette was also used to scrape the endometrial lining in a systematic, 360-degree fashion. Curetting was performed until a gritty cry was felt in all portions of endometrial cavity. Hysteroscope was re-introduced into to endometrial cavity and the cavity was noted to be empty. Both tubal ostia were seen. Hysteroscope was removed and Bronwyn endometrial ablation device was prepared and then inserted into endometrial cavity. The proper steps for Bronwyn ablation were followed (Bronwyn rep, [facility] [place] was present) and a 120 second burn was performed. Hysteroscope was once again reintroduced into endometrial cavity. Burned tissue was seen on approximately 60% of the endometrial surface. Fundal portions of endometrial cavity appeared raw and not burned. Hysteroscope was removed. Instruments were removed from cervix and vagina. Bleeding was noted from cervix and was stopped with [id number] stitch using 2-0 Vicryl suture. Excellent hemostasis was noted. At the end of procedure sponge, lap and needle count was correct x 2. Patient tolerated procedure well and she was taken to PACU awake and in stable condition.
--- NOTE | 2016-12-15 22:23 | SOAPPROG ---
[facility] Progress Note Assessment/Plan: A/P: 56-year-old perimenopausal WF on chronic anticoagulation with heavy, abnormal uterine bleeding. She is now POD#0 s/p hysteroscopy, curettage of endometrial cavity, and endometrial ablation. 1. Perimenopausal/abnormal uterine bleeding: POD#0 s/p ablation. Continue progesterone and TXA overnight. Consider discontinuation of these medications based on patient's response to ablation. 2. Chronic anticoagulation: Medicine team recommends initiation of Coumadin tonight with the addition of Lovenox tomorrow. Hospital medicine team will follow and give recs on patient while she remains admitted. 3. Disposition: Consider discharge home when bleeding has been adequately stopped or slowed and patient is being properly anticoagulated. Subjective: Patient had questions regarding her surgery. I discussed the procedure and what was expected following procedure. She was getting blood transfusion during conversation. She reported minimal pain and bleeding. Objective: Vital Signs Temp Pulse Resp BP Pulse Ox 36.3 C 89 18 94/58 L 97 12/15/16 20:00 12/15/16 20:00 12/15/16 20:00 12/15/16 20:00 12/15/16 20:00 Laboratory Results 12/15/16 20:10 12/15/16 06:49 12/14/16 12/15/16 12/16/16 05:59 05:59 05:59 Intake Total 2577 1900 Output Total 1202 2878 1470 Balance 1375 -2878 430 PT 17.7 SEC (12.0-15.0) H D 12/14/16 08:45 INR 1.46 (0.83-1.16) H 12/14/16 08:45 Physical Exam - Physical Exam General Appearance: alert Neck: supple Respiratory: lungs clear, normal breath sounds Cardiac/Chest: regular rate, rhythm Abdomen: non-tender, soft Pelvic Exam: deferred Extremities: normal inspection Neuro/Psych: alert, normal mood/affect, oriented x 3 ICD10 Worksheet Patient Problems: Problems Problem Status Onset Acute blood loss anemia Acute DUB (dysfunctional uterine bleeding) Acute On rivaroxaban therapy Acute Pulmonary embolism Active Elevated INR Acute Endometrial thickening on ultra sound Acute
[2016-12-16 06:45] LABS: INR 1.27 (0.83-1.16); PROTIME(PATIENT) 15.9 SEC (12.0-15.0)
[2016-12-16] MEDS: medroxyPROGESTERone 10 MG TAB PO SCH ×6 (09:01→22:13)
[2016-12-16] MEDS: CHOLECALCIFEROL VIT D3 1,000 UNITS TAB PO SCH ×2 (09:02)
[2016-12-16] MEDS: TRANEXAMIC ACID 650 MG TAB PO SCH ×2 (09:02)
[2016-12-16] MEDS: ENOXAPARIN 100 MG/ML SYR SC SCH ×4 (09:02→20:57)
[2016-12-16] MEDS: ACETAMINOPHEN 325 MG TAB PO PRN ×4 (09:20→21:04)
--- NOTE | 2016-12-16 14:54 | HOSPPROG ---
Hospitalist Progress Note Assessment/Plan: 56-year-old female presenting with dysfunctional uterine bleeding exacerbated by systemic anticoagulation for hx of recurrent VTE Plan: Dysfunctional uterine bleeding - in setting of systemic anticoagulation. S/P ablation by Dr. Meade, POD #1. No more bleeding. 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 S/P 5 units prbc's. Hgb stable this am. -cont to follow q12h H&H -IV iron daily, then can continue PO after discharge Acute kidney injury. secondary to renal hypoperfusion in the setting of blood loss, resolved. History of recurrent venous thromboembolism. Index DVT was 2007 and was provoked, subsequent event was in 2012 and was idiopathic, resulting in the recommendations for lifelong systemic anticoagulation -resume AC today (coumadin and bridge with lovenox) -follow INR -if h&h stable tomorrow am after 24 hrs of anticoagulation, would be ok with discharge -she'll need INR checked Sunday by PCP -will provide Rx for coumadin 5 mg and Lovenox for 5 day supply of bridging ( should dc lovenox when INR 2-3) Dispo. possible dc tomorrow on coumadin and lovenox with close INR f/u if no e/ o recurrent bleeding with resumption of anticoagulation today. Hospital Medicine will continue to consult in this patient's daily care. Subjective: Pt feels well, nearly 24 hrs post-op from ablation. No abdominal / pelvic pain. No more vaginal bleeding. no fevers. Objective: Vital Signs Temp Pulse Resp BP Pulse Ox 36.2 C 90 16 106/68 97 12/16/16 08:30 12/16/16 08:30 12/16/16 08:30 12/16/16 08:30 12/16/16 08:30 Laboratory Results 12/16/16 05:55 12/15/16 06:49 12/15/16 12/16/16 12/17/16 05:59 05:59 04:59 Intake Total 1900 Output Total 3628 1970 Balance -2878 -70 PT 15.9 SEC (12.0-15.0) H 12/16/16 05:55 INR 1.27 (0.83-1.16) H 11/04/17 05:55 - Physical Exam Constitutional: no apparent distress Eyes: PERRL Ears, Nose, Mouth, Throat: moist mucous membranes Cardiovascular: regular rate and rhythym, no murmur, rub, or gallop Respiratory: no respiratory distress, clear to auscultation Gastrointestinal: normoactive bowel sounds, soft, non-tender abdomen Skin: warm Musculoskeletal: full muscle strength Neurologic: AAOx3 Psychiatric: interacting appropriately ICD10 Worksheet Patient Problems: Problems Problem Status Onset Acute blood loss anemia Acute DUB (dysfunctional uterine bleeding) Acute On rivaroxaban therapy Acute Pulmonary embolism Active Elevated INR Acute Endometrial thickening on ultra sound Acute
--- NOTE | 2016-12-16 16:53 | SOAPPROG ---
[facility] Progress Note Assessment/Plan: Assessment: 56 y/o POD #1 s/p Hysteroscopy D and C Bronwyn endometrial ablation with symptomatic anemia secondary to severe menomenorrhagia. Plan: Maintain Provera TID for now while the TXA has been discharged and Coumadin and Lovenox are starting. Will d/c tomorrow, if she remains stable and follow-up @ [facility] in 2 weeks. 12/16/16 16:53 Subjective: Pt is feeling much better today. She has not had any more vaginal bleeding, just watery discharge. She denies light headness and dizziness and is ambulating and voiding without difficulty. She feels ready to go home, but doesn't want to culver the situation. Objective: Vital Signs Temp Pulse Resp BP Pulse Ox 36.2 C 90 16 106/68 97 12/16/16 08:30 12/16/16 08:30 12/16/16 08:30 12/16/16 08:30 12/16/16 08:30 Laboratory Results 12/16/16 05:55 12/15/16 06:49 12/15/16 12/16/16 12/17/16 05:59 05:59 04:59 Intake Total 1900 Output Total 2878 1970 Balance -2878 -70 PT 15.9 SEC (12.0-15.0) H 12/16/16 05:55 INR 1.27 (0.83-1.16) H 12/16/16 05:55 - Pending Discharge Pending Discharge Within 24 Hours: Yes Pending Discharge Date: 12/17/16 Pending Discharge Time: 11:00 Physical Exam - Physical Exam General Appearance: WD/WN, alert, no apparent distress Neck: non-tender, full range of motion, supple Respiratory: chest non-tender, lungs clear, normal breath sounds Cardiac/Chest: regular rate, rhythm Abdomen: normal bowel sounds, non-tender, soft Extremities: swelling (no), Libertad's sign (neg) ICD10 Worksheet Patient Problems: Problems Problem Status Onset Acute blood loss anemia Acute DUB (dysfunctional uterine bleeding) Acute On rivaroxaban therapy Acute Pulmonary embolism Active Elevated INR Acute Endometrial thickening on ultra sound Acute
[2016-12-16] MEDS ORDERED: ACET/CAFFEINE/BUTA FIORICET 1 EACH TAB PO PRN ×2 (16:58)
[2016-12-16] MEDS: FERROUS SULFATE 325 MG TAB PO SCH ×4 (17:17→22:16)
[2016-12-16] MEDS: WARFARIN SODIUM 5 MG TAB PO SCH ×2 (17:17)
[2016-12-17 06:10] VITALS: O2SAT 96
[2016-12-17 06:10] LABS: INR 1.92 (0.83-1.16); PROTIME(PATIENT) 22.1 SEC (12.0-15.0)
[2016-12-17] MEDS: FERROUS SULFATE 325 MG TAB PO SCH ×2 (09:26)
[2016-12-17] MEDS: CHOLECALCIFEROL VIT D3 1,000 UNITS TAB PO SCH ×2 (09:27)
[2016-12-17] MEDS: medroxyPROGESTERone 10 MG TAB PO SCH ×2 (09:27)
--- NOTE | 2016-12-17 10:19 | HOSPPROG ---
Hospitalist Progress Note Assessment/Plan: 56-year-old female presenting with dysfunctional uterine bleeding exacerbated by systemic anticoagulation for hx of recurrent VTE Plan: Dysfunctional uterine bleeding - in setting of systemic anticoagulation. S/P ablation by Dr. Meade, POD #1. No more bleeding. 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 S/P 5 units prbc's. Hgb stable this am. -cont to follow q12h H&H -cont po iron at dc Acute kidney injury. secondary to renal hypoperfusion in the setting of blood loss, resolved. History of recurrent venous thromboembolism. Index DVT was 2007 and was provoked, subsequent event was in 2012 and was idiopathic, resulting in the recommendations for lifelong systemic anticoagulation -INR 1.92 this am after 2 doses of coumadin 5 mg (note INR was a bit elevated when this was started) -defer lovenox as nearly therapeutic and seems to be on rapid rise. -reduce coumadin dose to 2.5 mg today and she'll need INR checked Sunday by PCP with further dose adjustment per PCP -If INR going down, may require Rx for lovenox for bridging until INR 2-3, defer to PCP pending INR result tomorrow Dispo. OK with dc today with close PCP f/u tomorrow for INR and coumadin dose adjustment Hospital Medicine will continue to consult in this patient's daily care. Objective: Vital Signs Temp Pulse Resp BP Pulse Ox 36.7 C 85 18 116/78 96 12/17/16 05:30 12/17/16 05:30 12/17/16 05:30 12/17/16 05:30 12/17/16 05:30 Laboratory Results 12/17/16 05:50 12/15/16 06:49 12/16/16 12/17/16 12/18/16 06:59 05:59 05:59 Intake Total Output Total Balance PT 22.1 SEC (12.0-15.0) H 12/17/16 05:50 INR 1.92 (0.83-1.16) H 12/17/16 05:50 ICD10 Worksheet Patient Problems: Problems Problem Status Onset Acute blood loss anemia Acute DUB (dysfunctional uterine bleeding) Acute On rivaroxaban therapy Acute Pulmonary embolism Active Elevated INR Acute Endometrial thickening on ultra sound Acute
--- NOTE | 2016-12-17 10:36 | SOAPPROG ---
[facility] Progress Note Assessment/Plan: A/P: 56-year-old perimenopausal WF on chronic anticoagulation with heavy, abnormal uterine bleeding. She is now POD#2 s/p hysteroscopy, curettage of endometrial cavity, and endometrial ablation. 1. Perimenopausal/abnormal uterine bleeding/Anemia: POD#2 s/p ablation. Reports minimal bleeding. H&H stable. Patient will take Progesterone 20 mg tid at home, OK to wean to 20 mg daily if bleeding remains minimal. She will otherwise f/u in 2 weeks with [facility] for post-op visit and to re-evaluate at that time. She knows to contact office sooner if bleeding worsens. Ferrous sulfate 325 bid BID prescribed for iron supplementation. 2. Chronic anticoagulation: Medicine team recommends continuation of Coumadin with INR check tomorrow at outpatient facility near her home. Lovenox has been discontinued. 3. Disposition: DC home today with strict precautions regarding worsening bleeding, anemia symptoms, or, conversely signs of VTE, shortness of breath or stroke-like symptoms. She is to contact clinic, hospital/ED immediately if these worsening symptoms develop. 12/17/16 10:27 Subjective: Marialuisa reports that she feels well this morning. She is voiding, passing flatus and having BMs spontaneously. She denies significant pelvic pain however she reports that a "fullness" near her bladder has been experienced over the past 24 hours that is not relieved with voiding. She says that this does not feel painful, just that it was not present previously. She reports minimal vaginal bleeding this morning (only small spotting each day since surgery). She is ready for discharge home if possible. Objective: Vital Signs Temp Pulse Resp BP Pulse Ox 36.7 C 85 18 116/78 96 12/17/16 05:30 12/17/16 05:30 12/17/16 05:30 12/17/16 05:30 12/17/16 05:30 Laboratory Results 12/17/16 05:50 12/15/16 06:49 12/16/16 12/17/16 12/18/16 06:59 05:59 05:59 Intake Total Output Total Balance PT 22.1 SEC (12.0-15.0) H 12/17/16 05:50 INR 1.92 (0.83-1.16) H 12/17/16 05:50 Post-operative H&H: 8.4/25.9 (POD 0; s/p 2 units PRBC, 5 PRBC units total)--> 9.2/27.9 (POD#1) --> 8.9/26.9 (POD#2) Physical Exam - Physical Exam General Appearance: alert, no apparent distress EENT: PERRL/EOMI Neck: supple Respiratory: lungs clear, normal breath sounds Cardiac/Chest: normal peripheral pulses, regular rate, rhythm Abdomen: normal bowel sounds, non-tender, soft Pelvic Exam: deferred Rectal: deferred Skin: normal color, warm/dry Extremities: normal range of motion, non-tender, normal inspection Neuro/Psych: no motor/sensory deficits, alert, normal mood/affect, oriented x 3 ICD10 Worksheet Patient Problems: Problems Problem Status Onset Acute blood loss anemia Acute DUB (dysfunctional uterine bleeding) Acute On rivaroxaban therapy Acute Pulmonary embolism Active Elevated INR Acute Endometrial thickening on ultra sound Acute
[2016-12-17] MEDS: MULTIVITAMINS 1 EACH TAB PO SCH ×2 (10:39)
--- NOTE | 2016-12-17 11:06 | PDDCSUM ---
Discharge Summary Discharge Summary: DATE OF ADMISSION: 12/13/2016 DATE OF DISCHARGE: 12/17/2016 ADMITTING DIAGNOSES: 1. Symptomatic anemia 2. Heavy Vaginal Bleeding 3. Loss of consciousness, fall, occipital scalp laceration. 4. Chronic anticoagulation with Xarelto. DISCHARGE DIAGNOSES: 1. Symptomatic anemia. 2. Metromenorrhagia, perimenopausal abnormal uterine bleeding. 3. Chronic anticoagulation. ADMITTING PHYSICIAN: Thomas Meade MD DISCHARGING PHYSICIAN: Thomas Meade MD HOSPITAL COURSE: 56-year-old perimenopausal white female with greater than 6 months' history of persistent problems with abnormal uterine bleeding who had been receiving evaluation and management with Dr. Caitlyn Peters, presented to ED on December 13, 2016, after fall/LOC at home following significant vaginal bleeding and blood loss. She had presented to ED two nights prior (December 11) and had been worked up at that time (pelvic US and H&H). Patient was admitted from ED, given blood transfusions (PRBC x 3 units; Hgb had dropped to 7 from 12 on Dec 11 ), PO Provera 20 mg TID, PO Tranexamic acid 1300 mg TID, discontinuation of Xarelto, Medicine Team consultation, serial pad count/weight, serial H&H, and close monitoring of her symptoms. By hospital day 2 (December 15), patient continued to have significant vaginal bleeding and decision was made to offer and proceed with hysteroscopy, D&C, and endometrial ablation. Following surgery , an additional 2 unites of PRBCs, and re-initiation of anticoagulation (and DC TXA; per Medicine Team recommendations), patient had minimal vaginal bleeding. By post-operative day 2/hospital day 5, patient was hemodynamically stable, only reporting minimal vaginal spotting, stable serial H&H values, doing well and ready for discharge home with close follow-up. PROCEDURES PERFORMED: 1. Repair of scalp laceration (matteo in ED). 2. Transfusion of packed red blood cells (5 units). 3. Hysteroscopy, endometrial sampling, Bronwyn endometrial ablation. COMPLICATIONS: None. CONSULTATIONS: Medicine (Hospitalist) Team DISCHARGE INSTRUCTIONS: Discharge home. DIET: Advance as tolerated. ACTIVITY: As tolerated. MEDICATIONS AND FOLLOWUP: Coumadin 5 mg daily. Provera 20 mg TID. Ferrous sulfate 325 mg BID. Follow-up to PCP tomorrow for initial outpatient INR check. Follow-up with PCP 10 days following scalp laceration repair for staple removal. Follow-up at [facility] within 2 weeks for re-evaluation of vaginal bleeding in context of chronic anticoagulation and to discuss management plan moving forward. Precautions and instructions for immediate/ emergency follow-up discussed if heavy bleeding or VTE symptoms develop.
[2016-12-17 13:19] VITALS: BP 116/74; PULSE 75; RESP 16; TEMP 97
== END 2016-12-17 10:30 | disposition home or self-care (01) | DRG 742 ==
LOC: FOB 14:57
PROVIDERS: ADMIT Obstetrics & Gynecology Gynecology; ATTEND Obstetrics & Gynecology Gynecology
PROC: 30233N1 Transfusion of Nonautologous Red Blood Cells into Peripheral Vein, Percutaneous Approach (ICD-10-PCS; 2016-12-13)
PROC: 0HQ0XZZ Repair Scalp Skin, External Approach (ICD-10-PCS; 2016-12-13)
PROC: 0UCB8ZZ Extirpation of Matter from Endometrium, Via Natural or Artificial Opening Endoscopic (ICD-10-PCS; principal; 2016-12-15 10:00)
PROC: 0U5B8ZZ Destruction of Endometrium, Via Natural or Artificial Opening Endoscopic (ICD-10-PCS; principal; 2016-12-15 10:00)
DX: N93.8 Other specified abnormal uterine and vaginal bleeding (principal); D62 Acute posthemorrhagic anemia; Z79.01 Long term (current) use of anticoagulants; N17.9 Acute kidney failure, unspecified; S01.01XA Laceration without foreign body of scalp, initial encounter; R55 Syncope and collapse; E66.9 Obesity, unspecified; W01.198A Fall on same level from slipping, tripping and stumbling with subsequent striking against other object, initial encounter; Y92.014 Private driveway to single-family (private) house as the place of occurrence of the external cause; Z86.711 Personal history of pulmonary embolism; Z86.718 Personal history of other venous thrombosis and embolism; Z98.84 Bariatric surgery status; Z68.31 Body mass index [BMI] 31.0-31.9, adult
CPT/HCPCS: C1782; G0378; J0690; J1650; J2250; J2704; J2916; J3010; P9016

== ENCOUNTER → 2017-03-20 | Outpatient (CLI) | payer BC | LOC: BMCIMAGING 13:27 | PROVIDERS: ATTEND Physician Assistant Medical | DX: Z12.31 Encounter for screening mammogram for malignant neoplasm of breast (principal); Z80.3 Family history of malignant neoplasm of breast ==

== ENCOUNTER → 2017-05-22 | Outpatient (CLI) | payer BC | LOC: BMCIMAGING 14:10 | PROVIDERS: ATTEND Physician Assistant Medical | DX: Q65.89 Other specified congenital deformities of hip (principal); M89.8X8 Other specified disorders of bone, other site ==

== ENCOUNTER → 2018-05-22 | Outpatient (CLI) | payer OTHER | LOC: BMCIMAGING 13:15 | PROVIDERS: ATTEND Physician Assistant Medical | DX: Z12.31 Encounter for screening mammogram for malignant neoplasm of breast (principal); Z80.3 Family history of malignant neoplasm of breast ==